=== PATIENT | female | born 1940 | race Caucasian/White ===

== ENCOUNTER 2016-08-15 10:13 | Inpatient (IN) | payer MEDICARE ==
[~2016-08-15] VITALS: Ht 160 cm; Wt 48.2 kg
--- NOTE | 2016-08-15 10:16 | PHYS DOC ---
Adult General Chief Complaint Chief Complaint: WEAKNESS/GENERALIZED HPI HPI Patient is a 76 year old female who presents with syncopal episode. According the she's not been feeling well for the last week and was seen by urgent care and might have a UTI. She got up this morning and was washing her hair in the sink and then yelled for her . He went a kitchen found at the kitchen table and was very slow to respond. EMS stated her sugar was 163 and she was somewhat confused. Upon arrival emergency department she notes she is a [place] she knows her and is able to answer questions appropriately. Review of Systems Review of Systems Constitutional: Denies fever or chills [] Eyes: Denies change in visual acuity, redness, or eye pain [] HENT: Denies nasal congestion or sore throat [] Respiratory: Denies cough or shortness of breath [] Cardiovascular: No additional information not addressed in HPI [] GI: Denies abdominal pain, nausea, vomiting, bloody stools or diarrhea [] : Denies dysuria or hematuria [] Musculoskeletal: Denies back pain or joint pain [] Integument: Denies rash or skin lesions [] Neurologic: Denies headache, focal weakness or sensory changes [] Endocrine: Denies polyuria or polydipsia [] Allergies Allergies Allergies Coded Allergies Type Severity Reaction Last Updated Verified Penicillins Allergy Intermediate 03/28/16 No ciprofloxacin Allergy Intermediate 03/28/16 No Physical Exam Physical Exam Constitutional: Well developed, well nourished, no acute distress, non-toxic appearance. [] HENT: Normocephalic, atraumatic, bilateral external ears normal, oropharynx moist, no oral exudates, nose normal. [] Eyes: PERRLA, EOMI, conjunctiva normal, no discharge. [] Neck: Normal range of motion, no tenderness, supple, no stridor. [] Cardiovascular:Heart rate regular rhythm, no murmur [] Lungs & Thorax: Bilateral breath sounds clear to auscultation [] Abdomen: Bowel sounds normal, soft, no tenderness, no masses, no pulsatile masses. [] Skin: Warm, dry, no erythema, no rash. [] Back: No tenderness, no CVA tenderness. [] Extremities: No tenderness, no cyanosis, no clubbing, ROM intact, no edema. [] Neurologic: Alert and oriented X 3, normal motor function, normal sensory function, no focal deficits noted. [] Psychologic: Affect normal, judgement normal, mood normal. [] Current Patient Data Vital Signs Vital Signs Date Time Temp Pulse Resp B/P Pulse Ox O2 Delivery O2 Flow Rate FiO2 08/15/16 13:22 56 29 136/65 97 Room Air 08/15/16 10:13 97.8 97.8 Lab Values Laboratory Tests Test 08/15/16 11:10 08/15/16 11:35 White Blood Count 8.4x10^3/uL (4.0-11.0) Red Blood Count 5.14x10^6/uL (3.50-5.40) Hemoglobin 15.9g/dL (12.0-15.5) H Hematocrit 48.5% (36.0-47.0) H Mean Corpuscular Volume 94fL (79-100) Mean Corpuscular Hemoglobin 31pg (25-35) Mean Corpuscular Hemoglobin Concent 33g/dL (31-37) Red Cell Distribution Width 12.8% (11.5-14.5) Platelet Count 232x10^3/uL (140-400) Neutrophils (%) (Auto) 73% (31-73) Lymphocytes (%) (Auto) 21% (24-48) L Monocytes (%) (Auto) 5% (0-9) Eosinophils (%) (Auto) 0% (0-3) Basophils (%) (Auto) 1% (0-3) Neutrophils # (Auto) 6.1x10^3uL (1.8-7.7) Lymphocytes # (Auto) 1.8x10^3/uL (1.0-4.8) Monocytes # (Auto) 0.4x10^3/uL (0.0-1.1) Eosinophils # (Auto) 0.0x10^3/uL (0.0-0.7) Basophils # (Auto) 0.1x10^3/uL (0.0-0.2) Prothrombin Time 12.3SEC (11.7-14.0) Prothrombin Time INR 1.0 (0.8-1.1) PTT 21SEC (24-38) L Sodium Level 140mmol/L (136-145) Potassium Level 3.7mmol/L (3.5-5.1) Chloride Level 100mmol/L (98-107) Carbon Dioxide Level 28mmol/L (21-32) Anion Gap 12 (6-14) Blood Urea Nitrogen 14mg/dL (7-20) Creatinine 1.1mg/dL (0.6-1.0) H Estimated GFR (Cockcroft-Gault) 48.0 BUN/Creatinine Ratio 13 (6-20) Glucose Level 123mg/dL (70-99) H Calcium Level 9.4mg/dL (8.5-10.1) Magnesium Level 2.2mg/dL (1.8-2.4) Total Bilirubin 0.7mg/dL (0.2-1.0) Aspartate Amino Transferase (AST) 21U/L (15-37) Alanine Aminotransferase (ALT) 20U/L (14-59) Alkaline Phosphatase 64U/L (46-116) Ammonia < 10mcmol/L (11-34) L Creatine Kinase 30U/L (26-192) Creatine Kinase MB (Mass) < 0.5ng/mL (0.0-3.6) Creatine Kinase MB Relative Index % (0-4) Troponin I Quantitative < 0.017ng/mL (0.000-0.055) SZ-[id number]-Type Natriuretic Peptide 140pg/mL (0-449) Total Protein 7.8g/dL (6.4-8.2) Albumin 3.6g/dL (3.4-5.0) Albumin/Globulin Ratio 0.9 (1.0-1.7) L Urine Color Yellow Urine Clarity Cloudy Urine pH 7.5 Urine Specific [place] 1.010 Urine Protein Negativemg/dL (NEG-TRACE) Urine Glucose (UA) Negativemg/dL (NEG) Urine Ketones (Stick) Negativemg/dL (NEG) Urine Blood Negative (NEG) Urine Nitrite Negative (NEG) Urine Bilirubin Negative (NEG) Urine Urobilinogen Dipstick 0.2mg/dL (0.2 mg/dL) Urine Leukocyte Esterase Negative (NEG) Urine RBC Occ/HPF (0-2) Urine WBC Occ/HPF (0-4) Urine Squamous Epithelial Cells Few/LPF Urine Amorphous Sediment Present/HPF Urine Bacteria 0/HPF (0-FEW) Urine Hyaline Casts Occasional/HPF Urine Mucus Slight/LPF Laboratory Tests 2/2/17 11:10 Laboratory Tests 08/15/16 11:10 EKG EKG EKG shows sinus bradycardia with a rate of 49 bpm, no ST elevations, T-wave inversions in aVL, normal axis, as interpreted by me. Radiology/Procedures Radiology/Procedures [facility] [address] [place] [address] IMAGING REPORT Signed PATIENT: AMANDA HAMILTON ACCOUNT: [id number] : 1940 LOCATION: ER AGE: 76 SEX: F EXAM STATUS: REG ER ORD. PHYSICIAN: LATONIA BUSH MD REASON: AMS PROCEDURE: PORTABLE CHEST 1V Indication: Altered mental status. Technique: Upright portable chest radiograph was obtained. No comparison is available. Findings: The lungs are hyperinflated but clear. Lung apices are clipped. There is no focal airspace disease. The heart is not enlarged and there is no heart failure. There is minimal atheromatous disease in the thoracic aorta. Bony structures are intact. Leads overlie the patient. Impression: Pulmonary hyperinflation, may be related to emphysema. No active pulmonary disease. DICTATED and SIGNED BY: ANDERSON LEAL MD DATE: 08/15/161058 CC: LATONIA BUSH MD; DILEEP MONTELONGO MD ~ Impressions: Bradycardia Syncope Dementia Course & Med Decision Making Course & Med Decision Making Pertinent Labs and Imaging studies reviewed. (See chart for details) EKG shows bradycardia with a rate of 49 bpm, labs show any acute abnormalities. Spoke with Dr. Montelongo, who is agreeable to admitting the patient family is agreeable. Family does agree to admit. We'll place a consult for Dr. Iqbal. Dragon Disclaimer Dragon Disclaimer This electronic medical record was generated, in whole or in part, using a voice recognition dictation system. Departure Departure Impression: Primary Impression: Syncope Disposition: 09 ADMITTED INPATIENT Admitting Physician: Dileep Montelongo Referrals: ERASMO BLACK (PCP) LATONIA BUSH MD Aug 15, 2016 10:16
--- NOTE | 2016-08-15 10:57 | EKG ---
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
--- NOTE | 2016-08-15 11:03 | RAD ---
Indication: Altered mental status. Technique: Upright portable chest radiograph was obtained. No comparison is available. Findings: The lungs are hyperinflated but clear. Lung apices are clipped. There is no focal airspace disease. The heart is not enlarged and there is no heart failure. There is minimal atheromatous disease in the thoracic aorta. Bony structures are intact. Leads overlie the patient. Impression: Pulmonary hyperinflation, may be related to emphysema. No active pulmonary disease.
[2016-08-15 11:23] LABS: BASO # 0.1 x10^3/uL (0.0-0.2); BASO % 1 % (0-3); EOS % 0 % (0-3); HEMATOCRIT 48.5 % (36.0-47.0); HEMOGLOBIN 15.9 g/dL (12.0-15.5); LYMPH # 1.8 x10^3/uL (1.0-4.8); LYMPH % 21 % (24-48); MEAN CORPUSCULAR HEMOGLOBIN 31 pg (25-35); MEAN CORPUSCULAR HGB CONC 33 g/dL (31-37); MEAN CORPUSCULAR VOLUME 94 fL (79-100); MONO % 5 % (0-9); NEUT % 73 % (31-73); PLATELET COUNT 232 x10^3/uL (140-400); RED BLOOD COUNT 5.14 x10^6/uL (3.50-5.40); RED CELL DISTRIBUTION WIDTH 12.8 % (11.5-14.5); WHITE BLOOD COUNT 8.4 x10^3/uL (4.0-11.0)
[2016-08-15 11:34] LABS: CALCIUM 9.4 mg/dL (8.5-10.1); CREATININE 1.1 mg/dL (0.6-1.0); POTASSIUM 3.7 mmol/L (3.5-5.1); PROTHROMBIN TIME PATIENT 12.3 SEC (11.7-14.0)
[2016-08-15 11:40] LABS: ALBUMIN 3.6 g/dL (3.4-5.0); ALBUMIN/GLOBULIN RATIO 0.9 (1.0-1.7); MAGNESIUM 2.2 mg/dL (1.8-2.4); TOTAL BILIRUBIN 0.7 mg/dL (0.2-1.0); TOTAL PROTEIN 7.8 g/dL (6.4-8.2)
[2016-08-15 11:46] LABS: BILIRUBIN,URINE NEGATIVE (NEG); GLUCOSE,URINE NEGATIVE (NEG); NITRITE,URINE NEGATIVE (NEG); PH,URINE 7.5; PROTEIN,URINE NEGATIVE (NEG-TRACE); UROBILINOGEN,URINE 0.2 mg/dL (0.2 mg/dL)
[2016-08-15 11:50] LABS: CKMB MASS < 0.5 ng/mL (0.0-3.6); CREATINE KINASE 30 U/L (26-192)
[2016-08-15 12:11] LABS: RBC,URINE OCC /HPF (0-2)
[2016-08-15 12:12] LABS: BACTERIA,URINE 0 /HPF (0-FEW); SQUAMOUS EPITHELIAL CELL,UR FEW /LPF; WBC,URINE OCC /HPF (0-4)
--- NOTE | 2016-08-15 14:34 | ACF ---
Admission Forms Criteria SYNCOPE Clinical Indications for Admission to Inpatient Care ( Place 'X' for any and all applicable criteria): Admission is indicated for syncope and ANY ONE of the following (1)(2)(3)(4)(5) (6)(7) : [X]I. Inpatient admission required rather than observation care (Also use Syncope: Observation Care Criteria as appropriate) because of ANY ONE of the following: [ ]a) Hemodynamic instability that is severe or persistent [X]b) Cardiac arrhythmias of immediate concern identified or strongly suspected (eg, needs electrophysiologic study) [ ]c) Acute coronary syndrome identified (Also use Myocardial Infarction or Angina Criteria form ) [ ]d) Structural cardiac disorder (eg, aortic stenosis) suspected as cause that requires immediate correction [ ]e) Respiratory symptoms (eg, dyspnea, tachypnea) that are severe or persistent [ ]f) Neurologic signs or symptoms that are severe or persistent ( eg, stroke, seizures, altered mental status) [ ]g) Severe electrolyte abnormalities requiring inpatient care [ ]h) Supplemental oxygen or respiratory treatment for over 24 hrs that are performable only in acute inpatient setting [ ]i) IV fluid to replace significant ongoing (eg, for over 24 hrs ) losses (>3 L/m2 per day) [ ]j) Continuous intravenous infusion of anticoagulation, platelet inhibitor, vasoactive, or antiarrhythmic medication(15)(16) [ ]k) Pulmonary artery catheter monitoring [ ]l) Temporary pacemaker placement(17) [ ]m) Emergent cardioversion(18) [ ]n) Other conditions, treatment or monitoring requiring inpatient admission [ ]II. Suspicion of imminently dangerous cause (eg, rare causes like pericardial tamponade, pulmonary embolism) [ ]III. Syncope causing severe injury requiring hospitalization Extended stay beyond goal length of stay may be needed for(28) [ ]a) Dangerous arrhythmia(15)(23)(27)(29) [ ]b) Myocardial ischemia [ ]c) Seizure disorder [ ]d) Syncope-related injuries The original [employer] content created by [employer] has been revised. The portions of the content which have been revised are identified through the use of italic text or in bold, and [employer] has neither reviewed nor approved the modified material. All other unmodified content is copyright [employer]. Please see references footnoted in the original [facility] edition 2016 Admission Criteria Met?: Yes CORINA GLEASON Aug 15, 2016 14:34
--- NOTE | 2016-08-15 15:01 | PDOC2 ---
CONSULT Date of Consult Date of Consult DATE: 08/15/16 TIME: 14:47 Reason for Consult Reason for Consult: Syncope with bradycardia Referring Physician Referring Physician: Dr Valles Identification/Chief Complaint Chief Complaint Dizziness / Syncope History of Present Illness Reason for Visit: Pt presented to the ER with syncope. Pt got out of the shower and felt dizzy. Pt called out for her and then passed out. Pt does not remember passing out. Pt denies chest pain, shortness of breath, N/V, diaphoresis. Pt did state she felt dizzy and that all she was "being drained". Pt stated this has happened many times before. She has passed out around 4 or 5 times. Pt stated the last time she passed out was around a year ago. In the past her daughter who is a nurse stated she was dehydrated and had orthostatic hypotension. Pt is currently only on osteoporotic medication. Pt is not on any cardiac medication. Pt denies any heart history. Pt stated she had HTN in the past but has been stable for years and has not been on medication recently. Pt has a recent diagnosis of Alzheimer's disease and daughter stated the pt might be depressed because of that. Pt's brother had to have a pacemaker placed years ago but she or the family could not expand on that. Past Medical History Cardiovascular: No pertinent hx, HTN (Hx of but currently denies) Family History Family History Brother - pacemaker Parents both heart healthy Current Problem List Problem List Problems Medical Problems: (1) Syncope Status: Acute Current Medications Current Medications Active Scripts Active Reported No Known Medications Prior To Admisstion (Info) Each 1 Each MC Allergies Allergies: Coded Allergies: Penicillins (Unverified Allergy, Intermediate, 03/28/16) ciprofloxacin (Unverified Allergy, Intermediate, 03/28/16) Physical Exam General: Alert, No acute distress HEENT: Atraumatic, EOMI Heart: Regular rate, Normal S1, Normal S2, No murmurs Extremities: No cyanosis, No edema, Normal pulses Vitals VITALS Vital Signs Date Time Temp Pulse Resp B/P Pulse Ox O2 Delivery O2 Flow Rate FiO2 08/15/16 13:22 56 29 136/65 97 Room Air 08/15/16 10:13 97.8 97.8 Labs Labs Laboratory Tests Test 08/15/16 11:10 08/15/16 11:35 White Blood Count 8.4x10^3/uL (4.0-11.0) Red Blood Count 5.14x10^6/uL (3.50-5.40) Hemoglobin 15.9g/dL (12.0-15.5) Hematocrit 48.5% (36.0-47.0) Mean Corpuscular Volume 94fL (79-100) Mean Corpuscular Hemoglobin 31pg (25-35) Mean Corpuscular Hemoglobin Concent 33g/dL (31-37) Red Cell Distribution Width 12.8% (11.5-14.5) Platelet Count 232x10^3/uL (140-400) Neutrophils (%) (Auto) 73% (31-73) Lymphocytes (%) (Auto) 21% (24-48) Monocytes (%) (Auto) 5% (0-9) Eosinophils (%) (Auto) 0% (0-3) Basophils (%) (Auto) 1% (0-3) Neutrophils # (Auto) 6.1x10^3uL (1.8-7.7) Lymphocytes # (Auto) 1.8x10^3/uL (1.0-4.8) Monocytes # (Auto) 0.4x10^3/uL (0.0-1.1) Eosinophils # (Auto) 0.0x10^3/uL (0.0-0.7) Basophils # (Auto) 0.1x10^3/uL (0.0-0.2) Prothrombin Time 12.3SEC (11.7-14.0) Prothromb Time International Ratio 1.0 (0.8-1.1) Activated Partial Thromboplast Time 21SEC (24-38) Sodium Level 140mmol/L (136-145) Potassium Level 3.7mmol/L (3.5-5.1) Chloride Level 100mmol/L (98-107) Carbon Dioxide Level 28mmol/L (21-32) Anion Gap 12 (6-14) Blood Urea Nitrogen 14mg/dL (7-20) Creatinine 1.1mg/dL (0.6-1.0) Estimated GFR (Cockcroft-Gault) 48.0 BUN/Creatinine Ratio 13 (6-20) Glucose Level 123mg/dL (70-99) Calcium Level 9.4mg/dL (8.5-10.1) Magnesium Level 2.2mg/dL (1.8-2.4) Total Bilirubin 0.7mg/dL (0.2-1.0) Aspartate Amino Transf (AST/SGOT) 21U/L (15-37) Alanine Aminotransferase (ALT/SGPT) 20U/L (14-59) Alkaline Phosphatase 64U/L (46-116) Ammonia < 10mcmol/L (11-34) Creatine Kinase 30U/L (26-192) Creatine Kinase MB (Mass) < 0.5ng/mL (0.0-3.6) Creatine Kinase MB Relative Index % (0-4) Troponin I Quantitative < 0.017ng/mL (0.000-0.055) JD-[id number]-I-Type Natriuretic Peptide 140pg/mL (0-449) Total Protein 7.8g/dL (6.4-8.2) Albumin 3.6g/dL (3.4-5.0) Albumin/Globulin Ratio 0.9 (1.0-1.7) Urine Color Yellow Urine Clarity Cloudy Urine pH 7.5 Urine Specific [place] 1.010 Urine Protein Negativemg/dL (NEG-TRACE) Urine Glucose (UA) Negativemg/dL (NEG) Urine Ketones (Stick) Negativemg/dL (NEG) Urine Blood Negative (NEG) Urine Nitrite Negative (NEG) Urine Bilirubin Negative (NEG) Urine Urobilinogen Dipstick 0.2mg/dL (0.2 mg/dL) Urine Leukocyte Esterase Negative (NEG) Urine RBC Occ/HPF (0-2) Urine WBC Occ/HPF (0-4) Urine Squamous Epithelial Cells Few/LPF Urine Amorphous Sediment Present/HPF Urine Bacteria 0/HPF (0-FEW) Urine Hyaline Casts Occasional/HPF Urine Mucus Slight/LPF Laboratory Tests Test 08/15/16 11:10 08/15/16 11:35 White Blood Count 8.4x10^3/uL (4.0-11.0) Red Blood Count 5.14x10^6/uL (3.50-5.40) Hemoglobin 15.9g/dL (12.0-15.5) Hematocrit 48.5% (36.0-47.0) Mean Corpuscular Volume 94fL (79-100) Mean Corpuscular Hemoglobin 31pg (25-35) Mean Corpuscular Hemoglobin Concent 33g/dL (31-37) Red Cell Distribution Width 12.8% (11.5-14.5) Platelet Count 232x10^3/uL (140-400) Neutrophils (%) (Auto) 73% (31-73) Lymphocytes (%) (Auto) 21% (24-48) Monocytes (%) (Auto) 5% (0-9) Eosinophils (%) (Auto) 0% (0-3) Basophils (%) (Auto) 1% (0-3) Neutrophils # (Auto) 6.1x10^3uL (1.8-7.7) Lymphocytes # (Auto) 1.8x10^3/uL (1.0-4.8) Monocytes # (Auto) 0.4x10^3/uL (0.0-1.1) Eosinophils # (Auto) 0.0x10^3/uL (0.0-0.7) Basophils # (Auto) 0.1x10^3/uL (0.0-0.2) Prothrombin Time 12.3SEC (11.7-14.0) Prothromb Time International Ratio 1.0 (0.8-1.1) Activated Partial Thromboplast Time 21SEC (24-38) Sodium Level 140mmol/L (136-145) Potassium Level 3.7mmol/L (3.5-5.1) Chloride Level 100mmol/L (98-107) Carbon Dioxide Level 28mmol/L (21-32) Anion Gap 12 (6-14) Blood Urea Nitrogen 14mg/dL (7-20) Creatinine 1.1mg/dL (0.6-1.0) Estimated GFR (Cockcroft-Gault) 48.0 BUN/Creatinine Ratio 13 (6-20) Glucose Level 123mg/dL (70-99) Calcium Level 9.4mg/dL (8.5-10.1) Magnesium Level 2.2mg/dL (1.8-2.4) Total Bilirubin 0.7mg/dL (0.2-1.0) Aspartate Amino Transf (AST/SGOT) 21U/L (15-37) Alanine Aminotransferase (ALT/SGPT) 20U/L (14-59) Alkaline Phosphatase 64U/L (46-116) Ammonia < 10mcmol/L (11-34) Creatine Kinase 30U/L (26-192) Creatine Kinase MB (Mass) < 0.5ng/mL (0.0-3.6) Creatine Kinase MB Relative Index % (0-4) Troponin I Quantitative < 0.017ng/mL (0.000-0.055) SI-Dfn-O-Type Natriuretic Peptide 140pg/mL (0-449) Total Protein 7.8g/dL (6.4-8.2) Albumin 3.6g/dL (3.4-5.0) Albumin/Globulin Ratio 0.9 (1.0-1.7) Urine Color Yellow Urine Clarity Cloudy Urine pH 7.5 Urine Specific [place] 1.010 Urine Protein Negativemg/dL (NEG-TRACE) Urine Glucose (UA) Negativemg/dL (NEG) Urine Ketones (Stick) Negativemg/dL (NEG) Urine Blood Negative (NEG) Urine Nitrite Negative (NEG) Urine Bilirubin Negative (NEG) Urine Urobilinogen Dipstick 0.2mg/dL (0.2 mg/dL) Urine Leukocyte Esterase Negative (NEG) Urine RBC Occ/HPF (0-2) Urine WBC Occ/HPF (0-4) Urine Squamous Epithelial Cells Few/LPF Urine Amorphous Sediment Present/HPF Urine Bacteria 0/HPF (0-FEW) Urine Hyaline Casts Occasional/HPF Urine Mucus Slight/LPF Assessment/Plan Assessment/Plan Syncope with bradycardia Admit to tele Echo Heart monitor for significant criteria for pacemaker Thank you for asking me to participate in the care of this pt. SULLY FOWLER MD Aug 15, 2016 15:01
[2016-08-15 16:00] VITALS: BP 143/81
[2016-08-15 17:00] VITALS: BP 143/81
[2016-08-15 17:02] VITALS: BP 140/81
[2016-08-15 17:05] VITALS: BP 133/85
[2016-08-15 19:00] VITALS: BP 126/73
[2016-08-15 23:00] VITALS: BP 136/72
[2016-08-16 03:06] VITALS: BP 129/76
[2016-08-16 06:09] LABS: BASO % 0 % (0-3); EOS % 0 % (0-3); HEMATOCRIT 43.6 % (36.0-47.0); HEMOGLOBIN 14.8 g/dL (12.0-15.5); LYMPH # 2.2 x10^3/uL (1.0-4.8); LYMPH % 34 % (24-48); MEAN CORPUSCULAR HEMOGLOBIN 31 pg (25-35); MEAN CORPUSCULAR HGB CONC 34 g/dL (31-37); MEAN CORPUSCULAR VOLUME 92 fL (79-100); MONO % 10 % (0-9); NEUT % 56 % (31-73); PLATELET COUNT 248 x10^3/uL (140-400); RED BLOOD COUNT 4.75 x10^6/uL (3.50-5.40); RED CELL DISTRIBUTION WIDTH 13.1 % (11.5-14.5); WHITE BLOOD COUNT 6.4 x10^3/uL (4.0-11.0)
[2016-08-16 06:45] LABS: CALCIUM 9.1 mg/dL (8.5-10.1); CREATININE 0.9 mg/dL (0.6-1.0); GFR 60.6; POTASSIUM 4.4 mmol/L (3.5-5.1)
[2016-08-16 07:00] VITALS: BP 123/70
--- NOTE | 2016-08-16 09:09 | PDOC ---
PROGRESS NOTES Subjective Subjective Pt was sitting up in bed this morning. Pt's daughter was in the room and helped answer some questions. Pt stated her night was uneventful. Pt denied dizziness, chest pain, SOB, N/V, diaphoresis. Pt's daughter stated when the pt stands she is weak and shaky. Daughter also stated the pt does not want to eat and only ate 2 bites of chicken yesterday. When asked if the pt had any complaints she responded, "I want to go home." Pt's daughter is concerned that she is depressed. Objective Objective Bradycardia at 48 overnight Vital Signs Date Time Temp Pulse Resp B/P Pulse Ox O2 Delivery O2 Flow Rate FiO2 08/16/16 07:00 98.1 74 16 123/70 96 Room Air 98.1 Intake and Output 08/16/16 07:00 Intake Total 60 ml Balance 60 ml Intake Oral 60 ml # Voids 3 Physical Exam Heart: Regular rate, Normal S1, Normal S2 Extremities: No clubbing, No cyanosis General: Alert HEENT: Atraumatic, EOMI Lungs: Normal air movement Assessment Assessment This pt has recurrent syncope with about 5 episodes in the last 2 years. To be able to determine if she needs a pacer I recommend to insert a Loop Recorder. The pt and the family agree with this. Informed consent was obtained. Will take her to the [facility] and insert the Loop Recorder today. Pt may go home after the procedure. Problems Medical Problems: (1) Syncope Status: Acute Plan Plan of Care Continue monitor and storage bin tender Comment Review of Relevant I have reviewed the following items fidel (where applicable) has been applied. Labs Laboratory Tests Test 08/15/16 11:10 08/15/16 11:35 08/15/16 20:19 08/16/16 05:00 White Blood Count 8.4x10^3/uL (4.0-11.0) 6.4x10^3/uL (4.0-11.0) Red Blood Count 5.14x10^6/uL (3.50-5.40) 4.75x10^6/uL (3.50-5.40) Hemoglobin 15.9g/dL (12.0-15.5) 14.8g/dL (12.0-15.5) Hematocrit 48.5% (36.0-47.0) 43.6% (36.0-47.0) Mean Corpuscular Volume 94fL (79-100) 92fL (79-100) Mean Corpuscular Hemoglobin 31pg (25-35) 31pg (25-35) Mean Corpuscular Hemoglobin Concent 33g/dL (31-37) 34g/dL (31-37) Red Cell Distribution Width 12.8% (11.5-14.5) 13.1% (11.5-14.5) Platelet Count 232x10^3/uL (140-400) 248x10^3/uL (140-400) Neutrophils (%) (Auto) 73% (31-73) 56% (31-73) Lymphocytes (%) (Auto) 21% (24-48) 34% (24-48) Monocytes (%) (Auto) 5% (0-9) 10% (0-9) Eosinophils (%) (Auto) 0% (0-3) 0% (0-3) Basophils (%) (Auto) 1% (0-3) 0% (0-3) Neutrophils # (Auto) 6.1x10^3uL (1.8-7.7) 3.6x10^3uL (1.8-7.7) Lymphocytes # (Auto) 1.8x10^3/uL (1.0-4.8) 2.2x10^3/uL (1.0-4.8) Monocytes # (Auto) 0.4x10^3/uL (0.0-1.1) 0.6x10^3/uL (0.0-1.1) Eosinophils # (Auto) 0.0x10^3/uL (0.0-0.7) 0.0x10^3/uL (0.0-0.7) Basophils # (Auto) 0.1x10^3/uL (0.0-0.2) 0.0x10^3/uL (0.0-0.2) Prothrombin Time 12.3SEC (11.7-14.0) Prothromb Time International Ratio 1.0 (0.8-1.1) Activated Partial Thromboplast Time 21SEC (24-38) Sodium Level 140mmol/L (136-145) 139mmol/L (136-145) Potassium Level 3.7mmol/L (3.5-5.1) 4.4mmol/L (3.5-5.1) Chloride Level 100mmol/L (98-107) 100mmol/L (98-107) Carbon Dioxide Level 28mmol/L (21-32) 27mmol/L (21-32) Anion Gap 12 (6-14) 12 (6-14) Blood Urea Nitrogen 14mg/dL (7-20) 18mg/dL (7-20) Creatinine 1.1mg/dL (0.6-1.0) 0.9mg/dL (0.6-1.0) Estimated GFR (Cockcroft-Gault) 48.0 60.6 BUN/Creatinine Ratio 13 (6-20) Glucose Level 123mg/dL (70-99) 58mg/dL (70-99) Calcium Level 9.4mg/dL (8.5-10.1) 9.1mg/dL (8.5-10.1) Magnesium Level 2.2mg/dL (1.8-2.4) Total Bilirubin 0.7mg/dL (0.2-1.0) Aspartate Amino Transf (AST/SGOT) 21U/L (15-37) Alanine Aminotransferase (ALT/SGPT) 20U/L (14-59) Alkaline Phosphatase 64U/L (46-116) Ammonia < 10mcmol/L (11-34) Creatine Kinase 30U/L (26-192) Creatine Kinase MB (Mass) < 0.5ng/mL (0.0-3.6) Creatine Kinase MB Relative Index % (0-4) Troponin I Quantitative < 0.017ng/mL (0.000-0.055) < 0.017ng/mL (0.000-0.055) < 0.017ng/mL (0.000-0.055) XJ-Xek-O-Type Natriuretic Peptide 140pg/mL (0-449) Total Protein 7.8g/dL (6.4-8.2) Albumin 3.6g/dL (3.4-5.0) Albumin/Globulin Ratio 0.9 (1.0-1.7) Urine Color Yellow Urine Clarity Cloudy Urine pH 7.5 Urine Specific [place] 1.010 Urine Protein Negativemg/dL (NEG-TRACE) Urine Glucose (UA) Negativemg/dL (NEG) Urine Ketones (Stick) Negativemg/dL (NEG) Urine Blood Negative (NEG) Urine Nitrite Negative (NEG) Urine Bilirubin Negative (NEG) Urine Urobilinogen Dipstick 0.2mg/dL (0.2 mg/dL) Urine Leukocyte Esterase Negative (NEG) Urine RBC Occ/HPF (0-2) Urine WBC Occ/HPF (0-4) Urine Squamous Epithelial Cells Few/LPF Urine Amorphous Sediment Present/HPF Urine Bacteria 0/HPF (0-FEW) Urine Hyaline Casts Occasional/HPF Urine Mucus Slight/LPF Laboratory Tests Test 08/15/16 11:10 08/15/16 11:35 08/15/16 20:19 08/16/16 05:00 White Blood Count 8.4x10^3/uL (4.0-11.0) 6.4x10^3/uL (4.0-11.0) Red Blood Count 5.14x10^6/uL (3.50-5.40) 4.75x10^6/uL (3.50-5.40) Hemoglobin 15.9g/dL (12.0-15.5) 14.8g/dL (12.0-15.5) Hematocrit 48.5% (36.0-47.0) 43.6% (36.0-47.0) Mean Corpuscular Volume 94fL (79-100) 92fL (79-100) Mean Corpuscular Hemoglobin 31pg (25-35) 31pg (25-35) Mean Corpuscular Hemoglobin Concent 33g/dL (31-37) 34g/dL (31-37) Red Cell Distribution Width 12.8% (11.5-14.5) 13.1% (11.5-14.5) Platelet Count 232x10^3/uL (140-400) 248x10^3/uL (140-400) Neutrophils (%) (Auto) 73% (31-73) 56% (31-73) Lymphocytes (%) (Auto) 21% (24-48) 34% (24-48) Monocytes (%) (Auto) 5% (0-9) 10% (0-9) Eosinophils (%) (Auto) 0% (0-3) 0% (0-3) Basophils (%) (Auto) 1% (0-3) 0% (0-3) Neutrophils # (Auto) 6.1x10^3uL (1.8-7.7) 3.6x10^3uL (1.8-7.7) Lymphocytes # (Auto) 1.8x10^3/uL (1.0-4.8) 2.2x10^3/uL (1.0-4.8) Monocytes # (Auto) 0.4x10^3/uL (0.0-1.1) 0.6x10^3/uL (0.0-1.1) Eosinophils # (Auto) 0.0x10^3/uL (0.0-0.7) 0.0x10^3/uL (0.0-0.7) Basophils # (Auto) 0.1x10^3/uL (0.0-0.2) 0.0x10^3/uL (0.0-0.2) Prothrombin Time 12.3SEC (11.7-14.0) Prothromb Time International Ratio 1.0 (0.8-1.1) Activated Partial Thromboplast Time 21SEC (24-38) Sodium Level 140mmol/L (136-145) 139mmol/L (136-145) Potassium Level 3.7mmol/L (3.5-5.1) 4.4mmol/L (3.5-5.1) Chloride Level 100mmol/L (98-107) 100mmol/L (98-107) Carbon Dioxide Level 28mmol/L (21-32) 27mmol/L (21-32) Anion Gap 12 (6-14) 12 (6-14) Blood Urea Nitrogen 14mg/dL (7-20) 18mg/dL (7-20) Creatinine 1.1mg/dL (0.6-1.0) 0.9mg/dL (0.6-1.0) Estimated GFR (Cockcroft-Gault) 48.0 60.6 BUN/Creatinine Ratio 13 (6-20) Glucose Level 123mg/dL (70-99) 58mg/dL (70-99) Calcium Level 9.4mg/dL (8.5-10.1) 9.1mg/dL (8.5-10.1) Magnesium Level 2.2mg/dL (1.8-2.4) Total Bilirubin 0.7mg/dL (0.2-1.0) Aspartate Amino Transf (AST/SGOT) 21U/L (15-37) Alanine Aminotransferase (ALT/SGPT) 20U/L (14-59) Alkaline Phosphatase 64U/L (46-116) Ammonia < 10mcmol/L (11-34) Creatine Kinase 30U/L (26-192) Creatine Kinase MB (Mass) < 0.5ng/mL (0.0-3.6) Creatine Kinase MB Relative Index % (0-4) Troponin I Quantitative < 0.017ng/mL (0.000-0.055) < 0.017ng/mL (0.000-0.055) < 0.017ng/mL (0.000-0.055) QH-Ktk-Y-Type Natriuretic Peptide 140pg/mL (0-449) Total Protein 7.8g/dL (6.4-8.2) Albumin 3.6g/dL (3.4-5.0) Albumin/Globulin Ratio 0.9 (1.0-1.7) Urine Color Yellow Urine Clarity Cloudy Urine pH 7.5 Urine Specific [place] 1.010 Urine Protein Negativemg/dL (NEG-TRACE) Urine Glucose (UA) Negativemg/dL (NEG) Urine Ketones (Stick) Negativemg/dL (NEG) Urine Blood Negative (NEG) Urine Nitrite Negative (NEG) Urine Bilirubin Negative (NEG) Urine Urobilinogen Dipstick 0.2mg/dL (0.2 mg/dL) Urine Leukocyte Esterase Negative (NEG) Urine RBC Occ/HPF (0-2) Urine WBC Occ/HPF (0-4) Urine Squamous Epithelial Cells Few/LPF Urine Amorphous Sediment Present/HPF Urine Bacteria 0/HPF (0-FEW) Urine Hyaline Casts Occasional/HPF Urine Mucus Slight/LPF Medications Active Scripts Active Reported No Known Medications Prior To Admisstion (Info) Each 1 Each Vitals/I & O Vital Sign - Last 24 Hours 08/15/16 08/15/16 08/15/16 08/15/16 10:13 11:30 12:00 12:30 Temp 97.8 97.8 Pulse 48 52 64 52 Resp 23 26 B/P 137/60 137/60 153/65 132/58 Pulse Ox 97 98 99 97 O2 Delivery Room Air Room Air Room Air Room Air 08/15/16 08/15/16 08/15/16 08/15/16 13:00 13:22 13:52 14:22 Pulse 56 56 58 64 Resp 26 29 27 25 B/P 139/62 136/65 136/62 164/72 Pulse Ox 96 97 96 99 O2 Delivery Room Air Room Air Room Air Room Air 08/15/16 08/15/16 08/15/16 08/15/16 15:22 16:00 16:50 17:00 Temp 97.3 97.3 Pulse 56 66 65 B/P 123/61 143/81 143/81 Pulse Ox 95 97 O2 Delivery Room Air Room Air Room Air 08/15/16 08/15/16 08/15/16 08/15/16 17:02 17:05 19:00 20:00 Temp 97.5 97.5 Pulse 64 78 70 Resp 20 B/P 140/81 133/85 126/73 Pulse Ox 97 O2 Delivery Room Air Room Air 08/15/16 08/16/16 08/16/16 23:00 03:06 07:00 Temp 97.4 98.0 98.1 97.4 98.0 98.1 Pulse 64 65 74 Resp 20 20 16 B/P 136/72 129/76 123/70 Pulse Ox 98 96 96 O2 Delivery Room Air Room Air Room Air Intake and Output 08/15/16 08/15/16 08/16/16 15:00 23:00 07:00 Intake Total 60 ml Balance 60 ml SULLY FOWLER MD Aug 16, 2016 09:09
[2016-08-16 10:49] VITALS: BP 125/68
[2016-08-16 15:18] VITALS: BP 130/80
[2016-08-16] MEDS ORDERED: LIDOCAINE 2%/EPI 1:100,000 20 ML VIAL. ONE (15:21)
[2016-08-16] MEDS ORDERED: FENTANYL PF 100 MCG/2 ML VIAL. ONE (15:56)
[2016-08-16] MEDS ORDERED: LIDOCAINE 2%/EPI 1:100,000 20 ML VIAL. IJ ONE (16:30)
[2016-08-16] MEDS ORDERED: FENTANYL PF 100 MCG/2 ML VIAL. IV ONE (16:30)
[2016-08-16 16:31] VITALS: BP 134/62
--- NOTE | 2016-08-16 17:11 | CARD ---
APPROVED REPORT EXAM Loop Recorder HISTORY The Patient is a 76 year-old female with a history of syncope INDICATIONS This patient has been having repeated episodes of syncope about 5 times in the last 2 years because t his syncope is happening every few months we have not been able to catch if they were due to a dysrhy thmia. The patient has had previous workups done and no apparent reason was found for the syncope is from a noncardiac standpoint therefore at this time we are trying to be able to find out what happens during this episodes and for this purpose a loop recorded was recommended. The patient has signed an informed consent. IMPLANTED DEVICES [facility] [facility] loop recorder PROCEDURE After explaining the risks, benefits, and alternative options, informed consent was obtained from the patient. The patient was brought to the cardiac catheterization lab and the left chest and shoulder were prepp ed and draped in the usual fashion. During this case, Fluoroscopy was not used. The left parasternal area was infiltrated with Xylocaine at the level of the fourth intercostal space . The skin was incised and then with blunt dissection I created a pocket for the loop recorder. The l oop recorder was then inserted into the area and the sensing was checked and found to be acceptable. The pocket was then closed with 2 layers of running suture and the skin edges were approximated with Dermabond. A dressing was applied to the area and the patient was returned to her room in satisfactor y condition after tolerating the procedure rather well. were used for imaging. CONCLUSION The loop recorder was inserted and we will be following the recordings as an outpatient. If the patie nt has an episode of syncope and it proves to be due to bradycardia she will then need to have insert ion of a permanent pacemaker and at that time we can explant the loop recorder.
--- NOTE | 2016-08-16 17:30 | CARD ---
APPROVED REPORT EXAM: Two-dimensional and M-mode echocardiogram with Doppler and color Doppler. Other Information Quality : Average Rhythm : NSR INDICATION Syncope 2D DIMENSIONS RVDd2.1 (2.9-3.5cm)Left Atrium(2D)2.1 (1.6-4.0cm) IVSd0.8 (0.7-1.1cm)Aortic Root(2D)2.5 (2.0-3.7cm) LVDd3.4 (3.9-5.9cm)LVOT Diameter2.0 (1.8-2.4cm) PWd0.7 (0.7-1.1cm)LVDs2.3 (2.5-4.0cm) FS (%) 22.9 %SV30.3 ml LVEF(%)55.0 (>50%) Aortic Valve AoV Peak Krunal.78.7cm/sAoV VTI15.5cm AO Peak GR.2.5mmHgLVOT VTI 14.96cm AO Mean GR.1mmHgAVA (VTI)2.98cm2 Mitral Valve MV E Iluhqryy41.6cm/sMV E Peak Gr.3mmHg MV DECEL QUDI019lbGN A Fbognoyx33.6cm/s MV E Mean Gr.1mmHgMV BHE41ft E/A Ratio0.9MV A Iuuatcwg138to MVA (PHT)2.82cm2 TDI Lateral E' P. V7.20cm/sMedial E' P. V6.41cm/s E/Lateral E'7.7E/Medial E'8.7 Tricuspid Valve TR P. Hnnmcjuq218ct/sRAP CDMULNNN0iuHa TR Peak Gr.03itBeGDQV95utMh Pulmonary Vein S1 Tkgfngpk81.6cm/sS2 Zniuqika89.14cm/s D2 Tfnwvsxm22.1cm/sPVa [id number] LEFT VENTRICLE The left ventricle is normal size. There is normal left ventricular wall thickness. Left ventricle sy stolic function is normal. The Ejection Fraction is 55%. There is normal LV segmental wall motion. Th e left ventricular diastolic function and filling is normal for age. RIGHT VENTRICLE The right ventricle is normal size. The right ventricular systolic function is normal. ATRIA The left atrium size is normal. The right atrium size is normal. The interatrial septum is intact wit h no evidence for an atrial septal defect or patent foramen ovale as noted on 2-D or Doppler imaging. AORTIC VALVE The aortic valve is calcified but opens well. The aortic valve is trileaflet. Doppler and Color Flow revealed no significant aortic regurgitation. There is no significant aortic valvular stenosis. MITRAL VALVE The mitral valve is normal in structure. There is no mitral valve stenosis. Doppler and Color Flow re vealed mild mitral regurgitation. TRICUSPID VALVE The tricuspid valve is normal in structure. Doppler and Color Flow revealed trace to mild tricuspid r egurgitation. The PA pressure was estimated at 23 mmHg. There is no tricuspid valve stenosis. PULMONIC VALVE The pulmonic valve is not well visualized. Doppler and Color Flow revealed no pulmonic valvular regur gitation. There is no pulmonic valvular stenosis. GREAT VESSELS The aortic root is normal in size. Normal pulmonary venous flow (Doppler). The IVC is normal in size and collapses >50% with inspiration. PERICARDIAL EFFUSION There is no evidence of significant pericardial effusion. Critical Notification Critical Value: No <Conclusion> Left ventricle systolic function is normal. The Ejection Fraction is 55%. The left atrium size is normal. The right atrium size is normal. The aortic valve is calcified but opens well. The aortic valve is trileaflet. Doppler and Color Flow revealed mild mitral regurgitation. Doppler and Color Flow revealed trace to mild tricuspid regurgitation. The PA pressure was estimated at 23 mmHg. The pulmonic valve is not well visualized. There is no evidence of significant pericardial effusion.
--- NOTE | 2016-08-16 20:36 | HP ---
ADMIT DATE: 08/15/2016 CHIEF COMPLAINT: Syncope. HISTORY OF PRESENT ILLNESS AND HOSPITAL COURSE: This patient is a 76-year-old male who lives at home with her . She yelled out and was found minimally responsive siting in a chair by her . She exhibited no evidence of seizures and was immediately coherent, but felt extremely fatigued and unable to care for herself. She apparently has had several episodes of syncope and "passing out" 4-5 times and feeling drained in the recent past as well as one episode a year ago. During Emergency Room evaluation, she was found to be bradycardic into the 40s. Patient currently is taking no medicines except for Fosamax. PAST MEDICAL HISTORY: Significant for: 1. Alzheimer type dementia. 2. Hypertension. 3. Suspected depression. The patient has been on medications for dementia, but has failed these due to nausea. The patient has been on medication for depression, but has been taken off of this by family. The patient has been on blood pressure medicine, but has again been taken off of this by family. Patient has no longstanding ____ at present. She is stable off medications except for current syncope issues. FAMILY HISTORY: Significant for father who of a stomach cancer, a brother who with cancer, but also had a pacemaker. Mother who had multiple syncopal spells, but unknown diagnoses. SOCIAL HISTORY: The patient has never smoked. She does not use alcohol. She lives with her . She has excellent family support from 3 daughters. ALLERGIES: THE PATIENT EXHIBITS ALLERGIES TO PENICILLIN CAUSING A RASH, CIPRO CAUSING STOMACH ONSET AND LIPITOR CAUSING MYALGIAS. REVIEW OF SYSTEMS: The patient continued to have poor appetite, but is eating. Denies any nausea, vomiting or diarrhea. The patient denies chest pain, shortness of breath. The patient does complain of fatigue. PHYSICAL EXAMINATION: GENERAL: This is a thin female in no apparent distress on my exam. She is asking to go home. HEENT: Benign. NECK: Supple, without JVD or bruit. CARDIAC: Regular rate and rhythm. LUNGS: Clear. ABDOMEN: Soft, nontender. EXTREMITIES: There are 2+ pulses without significant edema. NEUROLOGIC: Showed no unilateral findings, but obvious signs of dementia and poor short term memory are noted. ASSESSMENT: 1. Syncope. 2. Bradyarrhythmia. 3. Alzheimer type dementia. PLAN: To proceed with cardiology evaluation and telemetry monitoring and consider pacemaker placement if warranted. GLO LAI MD DR: SINDY/salvador JOB#: [id number] / [id number]
== END 2016-08-16 18:01 | disposition home or self-care (01) | DRG 261 ==
LOC: ER 10:13 → 5 NORTH 14:00 → OBSVTOIN 17:53
PROVIDERS: ADMIT Family Medicine; ATTEND Family Medicine
PROC: 0JH602Z Insertion of Monitoring Device into Chest Subcutaneous Tissue and Fascia, Open Approach (ICD-10-PCS; principal; 2016-08-16)
DX: R00.1 Bradycardia, unspecified (principal); Z68.1 Body mass index [BMI] 19.9 or less, adult; F32.9 Major depressive disorder, single episode, unspecified; F02.80 Dementia in other diseases classified elsewhere, unspecified severity, without behavioral disturbance, psychotic disturbance, mood disturbance, and anxiety; G30.9 Alzheimer's disease, unspecified; I10 Essential (primary) hypertension; M81.0 Age-related osteoporosis without current pathological fracture; Z80.0 Family history of malignant neoplasm of digestive organs; Z88.0 Allergy status to penicillin; Z88.1 Allergy status to other antibiotic agents; R63.6 Underweight
CPT/HCPCS: 33282; 36415; 71010; 80048; 80053; 81001; 82140; 82553; 83735; 83880; 84484; 85027; 85610; 85730; 93005; 93306; C1764; G0378; G0379; J3010; J3490; 99285-25

== ENCOUNTER 2016-12-21 19:20 | Emergency (ER) | payer MEDICARE ==
[~2016-12-21] VITALS: Ht 152.4 cm; Wt 45.4 kg
--- NOTE | 2016-12-21 20:21 | PHYS DOC ---
Past Medical History Past Medical History: Dementia, Unknown, Other Additional Past Medical Histor: Alzbibiana's Past Surgical History: Pacemaker Alcohol Use: None Drug Use: None Adult General Chief Complaint Chief Complaint: NAUSEA/VOMITING/DIARRHA HPI HPI Patient is a 76 year old female who presents with and daughter for evaluation of nausea and vomiting over the past 3 days and general weakness and shakiness today. She has mostly dry heaving today. Symptoms are usually worse in the afternoon and evening than the morning. She denies focal weakness, numbness, tingling, headache, vision changes, sore throat, rhinorrhea, nasal congestion, cough, dyspnea, chest pain, fever or chills, diarrhea, constipation. No falls or injury. Denies dysuria. States she was recently seen by her primary care doctor and restarted on some medications that she prior did not tolerate due to nausea and vomiting. She has been taking these intermittently. She has also been taking Keflex recently for a suspected urinary tract infection; however she was called by her primary care doctor and noted to have a negative urine culture. Review of Systems Review of Systems Constitutional: Denies fever or chills [] Eyes: Denies change in visual acuity, redness, or eye pain [] HENT: Denies nasal congestion or sore throat [] Respiratory: Denies cough or shortness of breath [] Cardiovascular: No additional information not addressed in HPI [] GI: Denies abdominal pain, bloody stools or diarrhea [] : Denies dysuria or hematuria [] Musculoskeletal: Denies back pain or joint pain [] Integument: Denies rash or skin lesions [] Neurologic: Denies headache, focal weakness or sensory changes [] Endocrine: Denies polyuria or polydipsia [] Current Medications Current Medications Current Medications Medications (Trade) Dose Ordered Sig/Sherrie Start Time Stop Time Status Last Admin Dose Admin Ondansetron HCl (Zofran) 4 mg 1X ONCE 12/21/16 20:30 12/21/16 20:31 DC 12/21/16 20:34 4 MG Potassium Chloride (Klor-Con) 40 meq 1X ONCE 12/21/16 21:00 12/21/16 21:01 DC 12/21/16 20:58 40 MEQ Sodium Chloride 500 ml @ 500 mls/hr 1X ONCE 12/21/16 20:30 12/21/16 21:29 DC 12/21/16 20:33 500 MLS/HR Allergies Allergies Allergies Coded Allergies Type Severity Reaction Last Updated Verified Penicillins Allergy Intermediate 03/28/16 No ciprofloxacin Allergy Intermediate 03/28/16 No Physical Exam Physical Exam Constitutional: Well developed, well nourished, no acute distress, non-toxic appearance. [] HENT: Normocephalic, atraumatic, bilateral external ears normal, oropharynx moist, nose normal. [] Eyes: PERRLA, EOMI. [] Neck: Normal range of motion, supple. [] Cardiovascular:Heart rate regular rhythm [] Lungs & Thorax: Bilateral breath sounds clear to auscultation [] Abdomen: Bowel sounds normal, soft, no tenderness. [] Skin: Warm, dry, no erythema, no rash. [] Back: No tenderness, no CVA tenderness. [] Extremities: No tenderness, ROM intact, no edema. [] Neurologic: Alert and oriented X 3, normal motor function, normal sensory function, no focal deficits noted. [] Psychologic: Affect normal, judgement normal, mood normal. [] Current Patient Data Vital Signs Vital Signs Date Time Temp Pulse Resp B/P (MAP) Pulse Ox O2 Delivery O2 Flow Rate FiO2 12/21/16 20:39 58 20 158/95 (116) 99 Room Air 12/21/16 19:25 97.6 97.6 Lab Values Laboratory Tests Test 12/21/16 19:40 12/21/16 21:05 White Blood Count 10.5 x10^3/uL (4.0-11.0) Red Blood Count 4.86 x10^6/uL (3.50-5.40) Hemoglobin 15.8 g/dL (12.0-15.5) H Hematocrit 45.1 % (36.0-47.0) Mean Corpuscular Volume 93 fL (79-100) Mean Corpuscular Hemoglobin 33 pg (25-35) Mean Corpuscular Hemoglobin Concent 35 g/dL (31-37) Red Cell Distribution Width 12.9 % (11.5-14.5) Platelet Count 287 x10^3/uL (140-400) Neutrophils (%) (Auto) 57 % (31-73) Lymphocytes (%) (Auto) 37 % (24-48) Monocytes (%) (Auto) 5 % (0-9) Eosinophils (%) (Auto) 0 % (0-3) Basophils (%) (Auto) 1 % (0-3) Neutrophils # (Auto) 6.0 x10^3uL (1.8-7.7) Lymphocytes # (Auto) 3.9 x10^3/uL (1.0-4.8) Monocytes # (Auto) 0.5 x10^3/uL (0.0-1.1) Eosinophils # (Auto) 0.0 x10^3/uL (0.0-0.7) Basophils # (Auto) 0.1 x10^3/uL (0.0-0.2) Sodium Level 141 mmol/L (136-145) Potassium Level 2.9 mmol/L (3.5-5.1) *L Chloride Level 101 mmol/L (98-107) Carbon Dioxide Level 25 mmol/L (21-32) Anion Gap 15 (6-14) H Blood Urea Nitrogen 22 mg/dL (7-20) H Creatinine 1.2 mg/dL (0.6-1.0) H Estimated GFR (Cockcroft-Gault) 43.4 Glucose Level 149 mg/dL (70-99) H Calcium Level 9.6 mg/dL (8.5-10.1) Total Bilirubin 1.0 mg/dL (0.2-1.0) Direct Bilirubin 0.1 mg/dL (0.0-0.2) Aspartate Amino Transferase (AST) 17 U/L (15-37) Alanine Aminotransferase (ALT) 16 U/L (14-59) Alkaline Phosphatase 73 U/L (46-116) Total Protein 8.3 g/dL (6.4-8.2) H Albumin 4.3 g/dL (3.4-5.0) Lipase 295 U/L (73-393) Urine Collection Type Unknown Urine Color Yellow Urine Clarity Cloudy Urine pH 7.5 Urine Specific [place] 1.015 Urine Protein Negative mg/dL (NEG-TRACE) Urine Glucose (UA) Negative mg/dL (NEG) Urine Ketones (Stick) 15 mg/dL (NEG) Urine Blood Negative (NEG) Urine Nitrite Negative (NEG) Urine Bilirubin Negative (NEG) Urine Urobilinogen Dipstick 0.2 mg/dL (0.2 mg/dL) Urine Leukocyte Esterase Negative (NEG) Urine RBC 1-2 /HPF (0-2) Urine WBC 1-4 /HPF (0-4) Urine Squamous Epithelial Cells Few /LPF Urine Transitional Epithelial Cells Few /LPF Urine Amorphous Sediment Present /HPF Urine Bacteria 0 /HPF (0-FEW) Urine Mucus Slight /LPF Laboratory Tests 12/21/16 19:40 Laboratory Tests 12/21/16 19:40 EKG EKG EKG as interpreted by me as normal sinus rhythm, rate 88, no ST-T changes, normal intervals, no ectopy Course & Med Decision Making Course & Med Decision Making Pertinent Labs and Imaging studies reviewed. (See chart for details) She is hypokalemia, but otherwise largely unremarkable laboratory evaluation. She is able to tolerate oral intake. Potassium was replaced by mouth. She is feeling much better after medications here. Offered admission for weakness associated with hypokalemia, but she prefers to go home. Discussed to stop medications that they feel are causing side effects (she will continue citalopram). Encouraged them to take medications back to the pharmacy that she will stop taking. Encouraged to follow-up with primary care and neurology to discuss other medication options. Return precautions given. She and family understand and agree with plan. Dragon Disclaimer Dragon Disclaimer This electronic medical record was generated, in whole or in part, using a voice recognition dictation system. Departure Departure Impression: Primary Impression: Nausea and vomiting Additional Impressions: Generalized weakness Hypokalemia Disposition: 01 HOME, SELF-CARE Condition: STABLE Referrals: GLO LAI MD (PCP) Patient Instructions: Nausea and Vomiting, [id number] Additional Instructions: Take Zofran as needed for nausea. Follow-up with your primary care doctor within one week. Please call for appointment. Return for any concerns. Scripts Ondansetron (ZOFRAN ODT) 4 Mg Tab.rapdis 1 TAB SL Q8HRS Y for NAUSEA, #10 TAB Prov: Alia LOMAX MD 12/21/16 Problem Qualifiers Primary Impression: Nausea and vomiting Vomiting type: unspecified Vomiting Intractability: non-intractable Qualified Codes: R11.2 - Nausea with vomiting, unspecified Alia LOMAX MD Dec 21, 2016 20:21
[2016-12-21 20:29] LABS: BASO # 0.1 x10^3/uL (0.0-0.2); BASO % 1 % (0-3); EOS % 0 % (0-3); HEMATOCRIT 45.1 % (36.0-47.0); HEMOGLOBIN 15.8 g/dL (12.0-15.5); LYMPH # 3.9 x10^3/uL (1.0-4.8); LYMPH % 37 % (24-48); MEAN CORPUSCULAR HEMOGLOBIN 33 pg (25-35); MEAN CORPUSCULAR HGB CONC 35 g/dL (31-37); MEAN CORPUSCULAR VOLUME 93 fL (79-100); MONO % 5 % (0-9); NEUT % 57 % (31-73); PLATELET COUNT 287 x10^3/uL (140-400); RED BLOOD COUNT 4.86 x10^6/uL (3.50-5.40); RED CELL DISTRIBUTION WIDTH 12.9 % (11.5-14.5); WHITE BLOOD COUNT 10.5 x10^3/uL (4.0-11.0)
[2016-12-21] MEDS ORDERED: ONDANSETRON PF 4 MG/2 ML VIAL. IV ONE (20:30)
[2016-12-21] MEDS ORDERED: IV NORMAL SALINE 500ML BAG 500 ML IV ONE (20:30)
[2016-12-21 20:36] LABS: ALBUMIN 4.3 g/dL (3.4-5.0); CALCIUM 9.6 mg/dL (8.5-10.1); CREATININE 1.2 mg/dL (0.6-1.0); DIRECT BILIRUBIN 0.1 mg/dL (0.0-0.2); GFR 43.4; TOTAL PROTEIN 8.3 g/dL (6.4-8.2)
[2016-12-21 20:40] LABS: POTASSIUM 2.9 mmol/L (3.5-5.1)
[2016-12-21] MEDS ORDERED: POTASSIUM CHLORIDE 20 MEQ TABLET.ER. PO ONE (21:00)
[2016-12-21 21:14] LABS: BILIRUBIN,URINE NEGATIVE (NEG); GLUCOSE,URINE NEGATIVE (NEG); NITRITE,URINE NEGATIVE (NEG); PH,URINE 7.5; PROTEIN,URINE NEGATIVE (NEG-TRACE); UROBILINOGEN,URINE 0.2 mg/dL (0.2 mg/dL)
[2016-12-21 21:22] LABS: BACTERIA,URINE 0 /HPF (0-FEW); SQUAMOUS EPITHELIAL CELL,UR FEW /LPF
[2016-12-21] MEDS ORDERED: ONDA4TAB10 SL (21:51)
[2016-12-21 22:17] VITALS: BP 140/87
--- NOTE | 2016-12-22 12:49 | EKG ---
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
== END 2016-12-21 22:15 | disposition home or self-care (01) ==
LOC: ER 19:20
DX: R11.2 Nausea with vomiting, unspecified (principal); R53.1 Weakness; E87.6 Hypokalemia; G30.9 Alzheimer's disease, unspecified; F02.80 Dementia in other diseases classified elsewhere, unspecified severity, without behavioral disturbance, psychotic disturbance, mood disturbance, and anxiety; Z95.0 Presence of cardiac pacemaker; Z88.0 Allergy status to penicillin; Z88.1 Allergy status to other antibiotic agents
CPT/HCPCS: 36415; 80048; 80076; 81001; 83690; 85027; 93005; 96374; 99285; J2405; J7040

== ENCOUNTER 2017-04-14 00:13 | Inpatient (IN) | payer MEDICARE ==
[~2017-04-14] VITALS: Ht 160 cm; Wt 49.9 kg
[~2017-04-14 00:13] MED LIST: ONDA4TAB10 SL
--- NOTE | 2017-04-14 00:28 | PHYS DOC ---
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 Patient didn't experience any any pain prior to the fall. She states she felt a little bit dizzy, this was similar to previous episodes of dizziness was brief. There was no focal weakness or numbness. Patient did not lose consciousness, did not hit her head or neck. Patient denies any head pain, neck pain, chest pain, abdominal pain or hip pain. Her chief complaint is pain in the lower back. She is able to move all her extremities. Review of Systems Review of Systems Constitutional: Denies fever or chills [] Eyes: Denies change in visual acuity, redness, or eye pain [] HENT: Denies injury Respiratory: Denies cough or shortness of breath [] Cardiovascular: No injury GI: Denies abdominal pain, : Denies dysuria or hematuria [] Musculoskeletal: Low back pain Integument: Denies rash or skin lesions [] Neurologic: Denies headache, focal weakness or sensory changes [] Current Medications Current Medications Current Medications Medications (Trade) Dose Ordered Sig/Sherrie Start Time Stop Time Status Last Admin Dose Admin Fentanyl Citrate (Fentanyl 2ml Vial) 75 mcg 1X ONCE 04/14/17 01:00 04/14/17 01:01 Sodium Chloride 500 ml @ 500 mls/hr 1X ONCE 04/14/17 01:00 04/14/17 01:59 Allergies Allergies Allergies Coded Allergies Type Severity Reaction Last Updated Verified Penicillins Allergy Intermediate 03/28/16 No ciprofloxacin Allergy Intermediate 03/28/16 No Physical Exam Physical Exam Constitutional: Well developed, well nourished, no acute distress, non-toxic appearance. [] HENT: Normocephalic, atraumatic, no signs of basilar skull fracture bilateral external ears normal, oropharynx dry no oral exudates, nose normal. [] Eyes:EOMI, conjunctiva normal, no discharge. [] Neck: Normal range of motion, no tenderness, supple, no stridor. No midline tenderness, no step-offs Cardiovascular:Heart rate regular rhythm, no murmur, equal pulses, normal perfusion. No chest wall deformity or tenderness Lungs & Thorax: Bilateral breath sounds clear to auscultation, no tachypnea Abdomen: Bowel sounds normal, soft, no tenderness, no masses, no pulsatile masses. [] Skin: Warm, dry, no erythema, no rash. [] Back: Tenderness to palpation in the midthoracic spine and the lumbar area, no step-offs Extremities: No tenderness, no cyanosis, no DVT, ROM intact, no edema. [] Neurologic: Alert and oriented X 3, normal motor function, no focal deficits noted. [] Psychologic: Affect normal, judgement normal, mood normal. [] EKG EKG 0024 sr, 65, no stemi[] Radiology/Procedures Radiology/Procedures [] Course & Med Decision Making Course & Med Decision Making Pertinent Labs and Imaging studies reviewed. (See chart for details) [] Dragon Disclaimer Dragon Disclaimer This electronic medical record was generated, in whole or in part, using a voice recognition dictation system. Departure Departure Referrals: GLO LAI MD (PCP) Catina PIEDRA MD Apr 14, 2017 00:27
[2017-04-14 00:36] LABS: BASO % 1 % (0-3); EOS % 1 % (0-3); HEMATOCRIT 41.3 % (36.0-47.0); HEMOGLOBIN 13.8 g/dL (12.0-15.5); LYMPH # 2.4 x10^3/uL (1.0-4.8); LYMPH % 34 % (24-48); MEAN CORPUSCULAR HEMOGLOBIN 32 pg (25-35); MEAN CORPUSCULAR HGB CONC 33 g/dL (31-37); MEAN CORPUSCULAR VOLUME 95 fL (79-100); MONO % 7 % (0-9); NEUT % 58 % (31-73); PLATELET COUNT 237 x10^3/uL (140-400); RED BLOOD COUNT 4.36 x10^6/uL (3.50-5.40); WHITE BLOOD COUNT 7.1 x10^3/uL (4.0-11.0)
[2017-04-14 00:45] LABS: CALCIUM 9.1 mg/dL (8.5-10.1); CREATININE 1.1 mg/dL (0.6-1.0); GFR 47.9
[2017-04-14] MEDS ORDERED: fentaNYL PF VIAL 100 MCG/2 ML VIAL IV ONE (01:00)
[2017-04-14] MEDS ORDERED: IV NORMAL SALINE 500ML BAG 500 ML IV ONE (01:00)
--- NOTE | 2017-04-14 01:38 | RAD ---
CT thoracic spine without contrast: Reason for examination: Pain after fall. Helical images were obtained through the thoracic spine with no contrast administered. Reconstruction was performed in sagittal and coronal planes. The vertebral bodies of the lumbar spine are normally aligned anteriorly and posteriorly no acute fracture or subluxation is seen. The posterior elements appear to be intact. The intervertebral discs are maintained. No spinal stenosis is seen. IMPRESSION: No acute abnormality evident in the thoracic spine. CT lumbar spine without contrast: Helical images were obtained through the lumbar spine with no contrast administered. Reconstruction was performed in sagittal and coronal planes. There appears to be a mild anterior wedge compression deformity of the L1 vertebral body. No other site of acute fracture is seen. There is however a grade 1 anterolisthesis of L4 on L5. And there is some hypertrophic spurring off the anterior endplates at this level. There are some degenerative disc disease with vacuum phenomena at the L4-5 level. There are also hypertrophic changes anteriorly at the L2-3 disc level anteriorly. Remaining disc spaces are maintained. No abnormality seen at the sacrum or at the sacroiliac joints. IMPRESSION: Mild anterior wedge compression fracture of L1. Grade 1 anterolisthesis of L4 on L5 with some hypertrophic changes. Degenerative spondylosis in the lumbar spine. Exposure: One or more of the following individualized dose reduction techniques were utilized for this examination: 1. Automated exposure control 2. Adjustment of the mA and/or kV according to patient size 3. Use of iterative reconstruction technique. Electronically signed by: Danielle Eaton MD (04/14/2017 1:35 AM) [id number]
[2017-04-14] MEDS ORDERED: MORPHINE SULFATE 4 MG/ML DISP.SYRIN. IV ONE (03:00)
[2017-04-14] MEDS ORDERED: MORPHINE SULFATE 4 MG/ML DISP.SYRIN. IV PRN (03:00)
[2017-04-14] MEDS ORDERED: HYDROcodone/APAP 5/325MG 1 TAB TABLET PO ONE (03:00)
[2017-04-14 03:20] VITALS: BP 138/86
[2017-04-14] MEDS ORDERED: INFLUENZA VAX SCREEN BY RX. MC ONE (05:00)
--- NOTE | 2017-04-14 06:21 | EKG ---
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
[2017-04-14 07:00] VITALS: BP 132/70
[2017-04-14] MEDS ORDERED: FLU VACC QS2017-18 (36MOS+)/PF 0.5 ML SYRINGE. VAX IM ONE (09:00)
--- NOTE | 2017-04-14 09:50 | PDOC1 ---
History and Physical Date of Admission Date of Admission DATE: 04/14/17 Identification/Chief Complaint Chief Complaint Back pain after fall Problems: Source Source: Patient History of Present Illness History of Present Illness Pt states that she was in the kitchen last night when she lost her balance and fell backwards. Had excruciating back pain which is what brought her to the emergency room. Pain has improved. Compression fracture of L1 seen on CT. Discussed different options of going to SNF vs going home vs neurosurgery consult for possible cement. Pt is hopeful to be able to go home today with oral pain medication. Discussed that she would need to be seen by physical therapy for their recommendations, but that if they clear her to go home and her pain is well tolerated with oral medications, home tonight is an option. Past Medical History Cardiovascular: HTN Pulmonary: No pertinent hx GI: No pertinent hx Heme/Onc: No pertinent hx Hepatobiliary: No pertinent hx Psych: Anxiety, Depression Musculoskeletal: low back pain, Osteoarthritis Rheumatologic: No pertinent hx Infectious disease: No pertinent hx ENT: No pertinent hx Renal/: No pertinent hx Endocrine: No pertinent hx Dermatology: No pertinent hx Past Surgical History Past Surgical History: Other (carpal tunnel) Family History Family History: Cancer Social History Smoke: No ALCOHOL: none Drugs: None Current Medications Current Medications Current Medications Fentanyl Citrate (Fentanyl 2ml Vial) 75 mcg 1X ONCE IV Last administered on 00:34; Start 04/14/17 at 01:00; Stop 04/14/17 at 01:01; Status DC Sodium Chloride 500 ml @ 500 mls/hr 1X ONCE IV Last administered on 00:35; Start 04/14/17 at 01:00; Stop 04/14/17 at 01:59; Status DC Acetaminophen/ Hydrocodone Bitart (Lortab 5/325) 1 tab 1X ONCE PO ; Start 04/14 at 03:00; Stop 04/14/17 at 03:00; Status DC Morphine Sulfate 4 mg 1X ONCE IV Last administered on 04/14/17 02:51; Start 04/14/17 at 03:00; Stop 04/14/17 at 03:01; Status DC Morphine Sulfate 2 mg PRN Q2HR PRN IV SEVERE PAIN; Start 04/14/17 at 03:00; Stop 04/14/17 at 09:42; Status DC Info (Do NOT chart on this placeholder) 1 each 1X ONCE MC ; Start 04/14/17 at 05:00; Stop 04/14/17 at 05:01; Status UNV Influenza Virus Vaccine Quadrival (Fluarix Quad [id number] Syringe) 0.5 ml ONCE ONCE VAX IM Last administered on 04/14/17t 08:39; Start 04/14/17 at 09:00; Stop 04/14/17 at 09:01; Status DC Acetaminophen/ Hydrocodone Bitart (Lortab ) 1 tab PRN Q6HRS PRN PO PAIN; Start 04/14/17 at 09:45; Status UNV Active Scripts Active Reported No Known Medications Prior To Admisstion (Info) Each 1 Each MC Allergies Allergies: Coded Allergies: Penicillins (Unverified Allergy, Intermediate, 03/28/16) ciprofloxacin (Unverified Allergy, Intermediate, 03/28/16) ROS General: No: Chills, Night Sweats PSYCHOLOGICAL ROS: No: Anxiety, Depression Eyes: No Decreased vision, No Eye Pain HEENT: No: Nasal congestion, Sore Throat ALLERGY AND IMMUNOLOGY: No: Hives, Post Nasal Drip Hematological and Lymphatic: No: Bleeding Problems, Blood Clots Respiratory: No: Cough, Shortness of breath Cardiovascular: No Chest Pain, No Palpitations, No Edema Gastrointestinal: No Nausea, No Vomiting, No Abdominal Pain, No Diarrhea, No Constipation Genitourinary: No Dysuria, No Urgency Musculoskeletal: Yes Joint Pain, Yes Muscle Pain Neurological: No Impaired Coord/balance, No Numbness/Tingling Skin: No Rash, No Skin Lesion Changes Physical Exam General: Alert, Oriented X3, Cooperative, No acute distress HEENT: Atraumatic, PERRLA, EOMI, Mucous membr. moist/pink Lungs: Clear to auscultation, Normal air movement Heart: RRR, no rubs, no gallops, no murmurs Abdomen: Normal bowel sounds, Soft, No tenderness, No hepatosplenomegaly Extremities: No clubbing, No cyanosis, No edema Neuro: Normal speech, Normal tone, Cranial nerves 3-12 NL Psych/Mental Status: Mental status NL, Mood NL Vitals Vitals Vital Signs Date Time Temp Pulse Resp B/P (MAP) Pulse Ox O2 Delivery O2 Flow Rate FiO2 04/14/17 07:00 97.7 68 18 132/70 (90) 94 Room Air 97.7 Labs Labs Laboratory Tests Test 04/14/17 00:27 04/14/17 08:30 White Blood Count 7.1 x10^3/uL (4.0-11.0) Red Blood Count 4.36 x10^6/uL (3.50-5.40) Hemoglobin 13.8 g/dL (12.0-15.5) Hematocrit 41.3 % (36.0-47.0) Mean Corpuscular Volume 95 fL (79-100) Mean Corpuscular Hemoglobin 32 pg (25-35) Mean Corpuscular Hemoglobin Concent 33 g/dL (31-37) Red Cell Distribution Width 14.0 % (11.5-14.5) Platelet Count 237 x10^3/uL (140-400) Neutrophils (%) (Auto) 58 % (31-73) Lymphocytes (%) (Auto) 34 % (24-48) Monocytes (%) (Auto) 7 % (0-9) Eosinophils (%) (Auto) 1 % (0-3) Basophils (%) (Auto) 1 % (0-3) Neutrophils # (Auto) 4.1 x10^3uL (1.8-7.7) Lymphocytes # (Auto) 2.4 x10^3/uL (1.0-4.8) Monocytes # (Auto) 0.5 x10^3/uL (0.0-1.1) Eosinophils # (Auto) 0.1 x10^3/uL (0.0-0.7) Basophils # (Auto) 0.0 x10^3/uL (0.0-0.2) Sodium Level 140 mmol/L (136-145) Potassium Level 4.0 mmol/L (3.5-5.1) Chloride Level 104 mmol/L (98-107) Carbon Dioxide Level 31 mmol/L (21-32) Anion Gap 5 (6-14) Blood Urea Nitrogen 24 mg/dL (7-20) Creatinine 1.1 mg/dL (0.6-1.0) Estimated GFR (Cockcroft-Gault) 47.9 Glucose Level 113 mg/dL (70-99) Calcium Level 9.1 mg/dL (8.5-10.1) Troponin I Quantitative < 0.017 ng/mL (0.000-0.055) < 0.017 ng/mL (0.000-0.055) Laboratory Tests Test 04/14/17 00:27 04/14/17 08:30 White Blood Count 7.1 x10^3/uL (4.0-11.0) Red Blood Count 4.36 x10^6/uL (3.50-5.40) Hemoglobin 13.8 g/dL (12.0-15.5) Hematocrit 41.3 % (36.0-47.0) Mean Corpuscular Volume 95 fL (79-100) Mean Corpuscular Hemoglobin 32 pg (25-35) Mean Corpuscular Hemoglobin Concent 33 g/dL (31-37) Red Cell Distribution Width 14.0 % (11.5-14.5) Platelet Count 237 x10^3/uL (140-400) Neutrophils (%) (Auto) 58 % (31-73) Lymphocytes (%) (Auto) 34 % (24-48) Monocytes (%) (Auto) 7 % (0-9) Eosinophils (%) (Auto) 1 % (0-3) Basophils (%) (Auto) 1 % (0-3) Neutrophils # (Auto) 4.1 x10^3uL (1.8-7.7) Lymphocytes # (Auto) 2.4 x10^3/uL (1.0-4.8) Monocytes # (Auto) 0.5 x10^3/uL (0.0-1.1) Eosinophils # (Auto) 0.1 x10^3/uL (0.0-0.7) Basophils # (Auto) 0.0 x10^3/uL (0.0-0.2) Sodium Level 140 mmol/L (136-145) Potassium Level 4.0 mmol/L (3.5-5.1) Chloride Level 104 mmol/L (98-107) Carbon Dioxide Level 31 mmol/L (21-32) Anion Gap 5 (6-14) Blood Urea Nitrogen 24 mg/dL (7-20) Creatinine 1.1 mg/dL (0.6-1.0) Estimated GFR (Cockcroft-Gault) 47.9 Glucose Level 113 mg/dL (70-99) Calcium Level 9.1 mg/dL (8.5-10.1) Troponin I Quantitative < 0.017 ng/mL (0.000-0.055) < 0.017 ng/mL (0.000-0.055) VTE Prophylaxis Ordered VTE Prophylaxis Devices: Yes VTE Pharmacological Prophylaxi: No Assessment/Plan Assessment/Plan Pt is a 77yo CF admitted for back pain 2/2 compression fracture 1)Compression fracture- pt feels that pain has improved since admission. She is hopeful to go back home tonight. Discussed different options with her; if physical therapy clears her and her pain is controlled with oral medications, going home tonight is definitely a possibility. Pt has known osteoporosis and is taking alendronate at home. 2)Osteoporosis- pt normally takes Alendronate 70mg 3)HTN- with white coat element. BP at goal of <150/90 4)Depression/Anxiety- will resume pt's Escitalopram 10mg 5)CKD- stable JOYA LINCOLN MD Apr 14, 2017 09:50
[2017-04-14] MEDS: CITALOPRAM 10 MG TABLET. PO SCH (10:00)
[2017-04-14 11:00] VITALS: BP 153/79
--- NOTE | 2017-04-14 14:33 | RAD ---
MRI lumbar spine without contrast 04/14/2017 INDICATION: L1 compression fracture COMPARISON: CT lumbar spine 04/14/2017 TECHNIQUE: Multiplanar, multisequence MR imaging of the lumbar spine is performed without intravenous contrast. FINDINGS: There is grade 1 anterolisthesis of L4 on L5. There is a compression fracture involving the L1 vertebral body with approximately 50 percent loss of height. Edema does not extend into the posterior elements. There is no disruption of the posterior longitudinal ligament. Ligamentum flavum is intact. No significant intraspinous or supraspinous ligament is edema is identified. Mild disc edema is noted at the L1-L2 disc. Mild disc desiccation at L2-L3, L3-L4 and L4-L5. Conus terminates at T12-L1. Distal cord signal is normal on all sequences. Subcentimeter renal cysts are present. There is a T2 hypointense lesion in the left kidney measuring 6 mm which likely represents a cyst, a by hemorrhage or protein given T1 signal hyperintensity. Simple hepatic cysts are present. L1-L2: Disc is normal in configuration. No significant facet arthropathy. No neuroforaminal or spinal canal stenosis. L2-L3: Disc is normal in configuration. No significant facet arthropathy. No neuroforaminal or spinal canal stenosis. L3-L4: Disc is normal in configuration. Mild facet arthropathy. No neuroforaminal or spinal canal stenosis. L4-L5: There is uncovering of the disc secondary to anterolisthesis. Mild disc bulge. Moderate facet arthropathy. Mild neural foraminal stenosis. Mild spinal canal stenosis. L5-S1: Disc is normal in configuration. There is moderate facet arthropathy. No neuroforaminal or spinal canal stenosis. IMPRESSION: 1. There is a compression deformity involving the inferior endplate of L1 resulting in 50 percent loss of height. No significant retropulsion. No ligamentous injury. 2. Grade 1 anterolisthesis of L4 on L5, likely secondary to degenerative facet arthropathy. 3. Mild multilevel degenerative changes, as detailed above. Electronically signed by: Sylvia Lemus MD (04/14/2017 2:28 PM) [id number]
[2017-04-14 15:00] VITALS: BP 127/63
[2017-04-14] MEDS: HYDROcodone/APAP 10/325 1 TAB TABLET PO PRN (17:44)
[2017-04-14 19:00] VITALS: BP 132/72
[2017-04-14 23:00] VITALS: BP 139/72
[2017-04-15] VITALS (12 sets, daily range): BP systolic 124–153; BP diastolic 71–103
[2017-04-15] MEDS: HYDROcodone/APAP 10/325 1 TAB TABLET PO PRN ×2 (06:44→21:18)
[2017-04-15 07:57] LABS: BASO % 0 % (0-3); EOS % 1 % (0-3); HEMATOCRIT 41.2 % (36.0-47.0); HEMOGLOBIN 14.1 g/dL (12.0-15.5); LYMPH # 1.9 x10^3/uL (1.0-4.8); LYMPH % 22 % (24-48); MEAN CORPUSCULAR HEMOGLOBIN 32 pg (25-35); MEAN CORPUSCULAR HGB CONC 34 g/dL (31-37); MEAN CORPUSCULAR VOLUME 93 fL (79-100); MONO % 7 % (0-9); NEUT % 70 % (31-73); PLATELET COUNT 228 x10^3/uL (140-400); RED BLOOD COUNT 4.43 x10^6/uL (3.50-5.40); RED CELL DISTRIBUTION WIDTH 13.6 % (11.5-14.5); WHITE BLOOD COUNT 8.5 x10^3/uL (4.0-11.0)
[2017-04-15 08:11] LABS: CALCIUM 8.8 mg/dL (8.5-10.1); CREATININE 0.9 mg/dL (0.6-1.0); GFR 60.4; POTASSIUM 3.6 mmol/L (3.5-5.1)
--- NOTE | 2017-04-15 08:20 | PDOC ---
SUBJECTIVE Subjective Pt accompanied by daughter this morning. Evaluated by physical therapy who recommended that pt go to SNF; still having difficulty getting in and out of bed. Pt considering kyphoplasty this morning but still undecided; she is currently NPO. OBJECTIVE Vital Signs Vital Signs Date Time Temp Pulse Resp B/P (MAP) Pulse Ox O2 Delivery O2 Flow Rate FiO2 04/15/17 07:15 98.0 69 20 146/103 (117) 94 Room Air 98.0 04/15/17 06:44 97 Room Air 04/15/17 03:00 98.1 81 18 141/82 (101) 97 Room Air 98.1 04/14/17 23:00 97.8 68 18 139/72 (94) 96 Room Air 97.8 04/14/17 20:30 Room Air 04/14/17 19:00 97.7 66 17 132/72 (92) 96 Room Air 97.7 04/14/17 18:44 16 Room Air 04/14/17 17:44 Room Air 04/14/17 15:00 98.1 72 18 127/63 (84) 95 Room Air 98.1 04/14/17 11:00 96.3 61 18 153/79 (103) 96 Room Air 96.3 PHYSICAL EXAM Physical Exam General: Alert, Oriented X3, Cooperative, No acute distress HEENT: Atraumatic, PERRLA, EOMI, Mucous membr. moist/pink Lungs: Clear to auscultation, Normal air movement Heart: RRR, no rubs, no gallops, no murmurs Abdomen: Normal bowel sounds, Soft, No tenderness, No hepatosplenomegaly Extremities: No clubbing, No cyanosis, No edema Neuro: Normal speech, Normal tone, Cranial nerves 3-12 NL Psych/Mental Status: Mental status NL, Mood NL ASSESSMENT/PLAN Assessment/Plan Pt is a 77yo CF admitted for back pain 2/2 compression fracture 1)Compression fracture- pt feels that pain has improved since admission. Physical therapy has recommended SNF which she is hesitant, but sounds willing. Pt has known osteoporosis and is taking alendronate at home. Pt considering kyphoplasty 2)Osteoporosis- pt normally takes Alendronate 70mg 3)HTN- with white coat element. BP at goal of <150/90 4)Depression/Anxiety- pt resumed on Escitalopram 10mg but has refused taking 5)CKD- stable Problems: COMMENT Lab Laboratory Tests Test 04/14/17 08:30 04/14/17 14:45 04/15/17 06:55 Troponin I Quantitative < 0.017 ng/mL (0.000-0.055) < 0.017 ng/mL (0.000-0.055) White Blood Count 8.5 x10^3/uL (4.0-11.0) Red Blood Count 4.43 x10^6/uL (3.50-5.40) Hemoglobin 14.1 g/dL (12.0-15.5) Hematocrit 41.2 % (36.0-47.0) Mean Corpuscular Volume 93 fL (79-100) Mean Corpuscular Hemoglobin 32 pg (25-35) Mean Corpuscular Hemoglobin Concent 34 g/dL (31-37) Red Cell Distribution Width 13.6 % (11.5-14.5) Platelet Count 228 x10^3/uL (140-400) Neutrophils (%) (Auto) 70 % (31-73) Lymphocytes (%) (Auto) 22 % (24-48) Monocytes (%) (Auto) 7 % (0-9) Eosinophils (%) (Auto) 1 % (0-3) Basophils (%) (Auto) 0 % (0-3) Neutrophils # (Auto) 6.0 x10^3uL (1.8-7.7) Lymphocytes # (Auto) 1.9 x10^3/uL (1.0-4.8) Monocytes # (Auto) 0.6 x10^3/uL (0.0-1.1) Eosinophils # (Auto) 0.0 x10^3/uL (0.0-0.7) Basophils # (Auto) 0.0 x10^3/uL (0.0-0.2) Sodium Level 138 mmol/L (136-145) Potassium Level 3.6 mmol/L (3.5-5.1) Chloride Level 103 mmol/L (98-107) Carbon Dioxide Level 25 mmol/L (21-32) Anion Gap 10 (6-14) Blood Urea Nitrogen 11 mg/dL (7-20) Creatinine 0.9 mg/dL (0.6-1.0) Estimated GFR (Cockcroft-Gault) 60.4 Glucose Level 106 mg/dL (70-99) Calcium Level 8.8 mg/dL (8.5-10.1) JOYA LINCOLN MD Apr 15, 2017 08:20
[2017-04-15] MEDS: CITALOPRAM 10 MG TABLET. PO SCH (08:31)
[2017-04-15 09:38] LABS: PROTHROMBIN TIME PATIENT 12.5 SEC (11.7-14.0)
[2017-04-15] MEDS ORDERED: IOHEXOL 300 MG/ML 50 ML VIAL. ONE (14:04)
[2017-04-15] MEDS ORDERED: LIDOCAINE 1% / SOD BICARB 8.4% 20 ML VIAL. IJ ONE ×2 (14:05→15:45)
--- NOTE | 2017-04-15 14:44 | PDOC1 ---
IR Pre-Procedure H&P H&P Update L1 fracture confirmed to be acute on MRI. Persistent pain. Patient desires to have kyphoplasty performed. Otherwise no significant change from Dr. Wiggins's admit H&P done 04/14/17. LORI CORRALES MD Apr 15, 2017 14:44
[2017-04-15] MEDS ORDERED: MIDAZOLAM HCL/PF 5 MG/5 ML VIAL. ONE (15:09)
[2017-04-15] MEDS ORDERED: CLINDAMYCIN 600MG PREMIX 50 ML IV ONE (15:10)
[2017-04-15] MEDS ORDERED: fentaNYL PF VIAL 250 MCG/5 ML VIAL ONE (15:10)
[2017-04-15] MEDS ORDERED: MIDAZOLAM HCL/PF 5 MG/5 ML VIAL. IV ONE (15:45)
[2017-04-15] MEDS ORDERED: fentaNYL PF VIAL 250 MCG/5 ML VIAL IV ONE (15:45)
[2017-04-15] MEDS ORDERED: IOHEXOL 300 MG/ML 50 ML VIAL. IART ONE (15:45)
--- NOTE | 2017-04-15 15:45 | PDOC ---
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
--- NOTE | 2017-04-15 16:11 | RAD ---
PROCEDURES: 1. Left transpedicular kyphoplasty The procedure, risks, and complications, to include bleeding, infection, cement embolization, compression of the spinal canal and cement extrusion were explained to the patient and her daughters and they understood and wished to proceed. Consent form signed. The back was prepped and draped using maximal sterile technique and 1% Xylocaine used for local topical anesthesia and deep periosteal anesthesia. Utilizing careful fluoroscopic biplane positioning, the L1 pedicles were identified. Using a left transpedicular approach, a trocar needle into the posterior aspect of the L1 vertebral body. Using curved needle technique, the kyphoplasty balloon was advanced across midline in the vertebral body. Kyphoplasty was then performed under fluoroscopic guidance. Balloon was deflated and carefully removed. Under very careful biplane fluoroscopic guidance, curved cement needle was advanced across midline. Polymethylmethacrylate was carefully injected into the vertebral body filling the the site of the compression fracture. Following the cement injections, the needles were removed, pressure placed, and hemostasis obtained. The patient tolerated the procedure well and returned to the floor in stable condition. Sedation: Conscious sedation for 34 minutes. Intravenous versed and fentanyl were given and the patient was monitored by the nurses in attendance. Complications: None Antibiotics: Cleocin 600mg IV Fluoroscopy time: 8.0 minutes DAP: 579.9 uGycm2 IMPRESSION: 1. Fluoroscopy-guided percutaneous transpedicular L1 kyphoplasty.
[2017-04-16 03:27] VITALS: BP 122/72
[2017-04-16 07:15] VITALS: BP 145/93
[2017-04-16] MEDS: CITALOPRAM 10 MG TABLET. PO SCH (08:06)
--- NOTE | 2017-04-16 09:19 | PDOC ---
SUBJECTIVE Subjective Pt says that her pain is pretty well controlled. Family state that she still has difficulty getting out of bed. Pt not wants to go home, but is willing to go to SNF for a short period of time. OBJECTIVE Vital Signs Vital Signs Date Time Temp Pulse Resp B/P (MAP) Pulse Ox O2 Delivery O2 Flow Rate FiO2 04/16/17 07:15 98.2 78 18 145/93 (110) 96 Room Air 98.2 04/16/17 03:27 98.0 68 16 122/72 (89) 96 Room Air 98.0 04/15/17 23:28 98.0 66 18 147/85 (105) 95 Room Air 98.0 04/15/17 22:20 95 Room Air 04/15/17 21:18 96 Room Air 04/15/17 20:20 Room Air 04/15/17 19:15 97.5 74 18 124/74 (91) 96 Room Air 97.5 04/15/17 18:00 97.0 68 18 149/77 (101) 97 Room Air 97.0 04/15/17 17:30 140/73 (95) 04/15/17 17:00 97.3 60 20 138/71 (93) 97 Room Air 97.3 04/15/17 16:45 139/78 (98) 04/15/17 16:30 140/82 (101) 04/15/17 16:15 97.9 63 18 147/74 (98) 96 Room Air 97.9 04/15/17 15:49 14 100 Room Air 04/15/17 15:46 70 14 100 Room Air 04/15/17 11:17 65 18 138/79 (98) 95 Room Air PHYSICAL EXAM Physical Exam General: Alert, Oriented X3, Cooperative, No acute distress HEENT: Atraumatic, PERRLA, EOMI, Mucous membr. moist/pink Lungs: Clear to auscultation, Normal air movement Heart: RRR, no rubs, no gallops, no murmurs Abdomen: Normal bowel sounds, Soft, No tenderness, No hepatosplenomegaly Extremities: No clubbing, No cyanosis, No edema Neuro: Normal speech, Normal tone, Cranial nerves 3-12 NL Psych/Mental Status: Mental status NL, Mood NL ASSESSMENT/PLAN Assessment/Plan Pt is a 77yo CF admitted for back pain 2/2 compression fracture 1)Compression fracture- s/p kyphoplasty. Pt feels that pain has improved. Planning on D/C to SNF on Friday. Pt has known osteoporosis and is taking alendronate at home. Pt considering kyphoplasty 2)Osteoporosis- pt normally takes Alendronate 70mg 3)HTN- with white coat element. BP at goal of <150/90 4)Depression/Anxiety- pt resumed on Escitalopram 10mg but has refused taking 5)CKD- stable Problems: JOYA LINCOLN MD Apr 16, 2017 09:19
[2017-04-16 11:05] VITALS: BP 130/72
[2017-04-16 15:10] VITALS: BP 120/69
[2017-04-16 19:00] VITALS: BP 154/84
[2017-04-16] MEDS: HYDROcodone/APAP 10/325 1 TAB TABLET PO PRN (21:11)
[2017-04-16 23:00] VITALS: BP 156/93
[2017-04-17 03:00] VITALS: BP 137/75
[2017-04-17 07:00] VITALS: BP 130/90
--- NOTE | 2017-04-17 08:08 | PDOC ---
SUBJECTIVE Subjective Pt says that she is doing okay. She has been not taking her anti-depressant but daughter says that she thinks it would be best if pt would restart it, and she says that she is willing today. OBJECTIVE Vital Signs Vital Signs Date Time Temp Pulse Resp B/P (MAP) Pulse Ox O2 Delivery O2 Flow Rate FiO2 04/17/17 03:00 97.5 65 18 137/75 (95) 96 Room Air 97.5 04/16/17 23:00 97.9 73 18 156/93 (114) 96 Room Air 97.9 04/16/17 22:15 98 Room Air 04/16/17 21:11 98 Room Air 04/16/17 20:50 Room Air 04/16/17 19:00 97.7 78 20 154/84 (107) 98 Room Air 97.7 04/16/17 15:10 97.3 66 18 120/69 (86) 96 Room Air 97.3 04/16/17 11:05 97.8 63 16 130/72 (91) 97 Room Air 97.8 PHYSICAL EXAM Physical Exam General: Alert, Oriented X3, Cooperative, No acute distress HEENT: conjunctival hemorrhage right eye, PERRLA, EOMI, Mucous membr. moist/ pink Lungs: Clear to auscultation, Normal air movement Heart: RRR, no rubs, no gallops, no murmurs Abdomen: Normal bowel sounds, Soft, No tenderness, No hepatosplenomegaly Extremities: No clubbing, No cyanosis, No edema Neuro: Normal speech, Normal tone, Cranial nerves 3-12 NL Psych/Mental Status: Mental status NL, Mood NL ASSESSMENT/PLAN Assessment/Plan Pt is a 77yo CF admitted for back pain 2/2 compression fracture 1)Compression fracture- 2/2 osteoporosis and fall, s/p kyphoplasty. Pt feels that pain has improved. Planning on D/C to SNF on Friday. 2)Osteoporosis- pt normally takes Alendronate 70mg 3)HTN- with white coat element. BP at goal of <150/90 4)Depression/Anxiety- pt resumed on Escitalopram 10mg but was refusing to take it. Has been having angry outbursts with family, willing to restart 5)CKD- stable Problems: JOYA LINCOLN MD Apr 17, 2017 08:07
[2017-04-17] MEDS: CITALOPRAM 10 MG TABLET. PO SCH (09:20)
[2017-04-17] MEDS: HYDROcodone/APAP 10/325 1 TAB TABLET PO PRN ×2 (09:21→23:36)
[2017-04-17 11:00] VITALS: BP 157/75
[2017-04-17 15:00] VITALS: BP 126/67
[2017-04-17 19:00] VITALS: BP 113/67
[2017-04-17 23:00] VITALS: BP 137/75
[2017-04-18 03:00] VITALS: BP 133/76
[2017-04-18 07:00] VITALS: BP 134/66
--- NOTE | 2017-04-18 07:51 | PDOC3 ---
Discharge Summary* Date of Admission: Apr 14, 2017 Date of Discharge: Apr 18, 2017 Admitting Diagnosis Fall, Compression Fracture L1 Problems: Final Diagnosis Compression fracture- 2/2 osteoporosis and fall, s/p kyphoplasty, Osteoporosis, HTN with white coat element, Depression/Anxiety, Dementia, CKD- Stage 2 CONSULTS Interventional Radiology Procedures Thoracic/Lumbar CT Spine- no acute abnormalities in thoracic spine, mild anterior wedge compression fracture of L1. Grade 1 anterolisthesis of L4 on L5 with some hypertrophic changes. Degenerative spondylosis in lumbar spine Brief Hospital Course DISCHARGE PHYSICAL EXAM General: Alert, Oriented X3, Cooperative, No acute distress HEENT: conjunctival hemorrhage right eye, PERRLA, EOMI, Mucous membr. moist/ pink Lungs: Clear to auscultation, Normal air movement Heart: RRR, no rubs, no gallops, no murmurs Abdomen: Normal bowel sounds, Soft, No tenderness, No hepatosplenomegaly Extremities: No clubbing, No cyanosis, No edema Neuro: Normal speech, Normal tone, Cranial nerves 3-12 NL Psych/Mental Status: Mental status NL, Mood NL Pt is a 77yo CF admitted for back pain 2/2 compression fracture 1)Compression fracture- 2/2 osteoporosis and fall, s/p kyphoplasty. Pt feels that pain has improved. Planning on D/C to SNF today 2)Osteoporosis- pt normally takes Alendronate 70mg 3)HTN- with white coat element. BP at goal of <150/90 4)Depression/Anxiety- pt resumed on Escitalopram 10mg but was refusing to take it. Has been having angry outbursts with family, willing to restart 5)CKD- stage 2, stable Disposition/Orders: D/C to Another Facility CONDITION AT DISCHARGE: Improved, Stable Diet: Regular Miscellaneous Medications Info (No Known Medications Prior To Admisstion), 1 EACH , (Reported) PCP Follow up with Dr. Montelongo within 2 weeks of being discharged from [facility] Time Spent Total time spent with patient [] minutes for coordination of care, counseling, and education. JOYA LINCOLN MD Apr 18, 2017 07:51
[2017-04-18] MEDS: CITALOPRAM 10 MG TABLET. PO SCH (10:20)
[2017-04-18] MEDS: HYDROcodone/APAP 10/325 1 TAB TABLET PO PRN (10:20)
[2017-04-18 11:00] VITALS: BP 141/81
== END 2017-04-18 13:15 | DRG 516 ==
LOC: ER 00:13 → 4 NORTH 02:52 → OBSVTOIN 04-15 11:37
PROVIDERS: ADMIT Family Medicine; ATTEND Family Medicine
PROC: 0QS03ZZ Reposition Lumbar Vertebra, Percutaneous Approach (ICD-10-PCS; principal; 2017-04-15)
PROC: 0QU03JZ Supplement Lumbar Vertebra with Synthetic Substitute, Percutaneous Approach (ICD-10-PCS; 2017-04-15)
DX: M80.08XA Age-related osteoporosis with current pathological fracture, vertebra(e), initial encounter for fracture (principal); R64 Cachexia; Z68.1 Body mass index [BMI] 19.9 or less, adult; F03.90 Unspecified dementia, unspecified severity, without behavioral disturbance, psychotic disturbance, mood disturbance, and anxiety; F41.9 Anxiety disorder, unspecified; F32.9 Major depressive disorder, single episode, unspecified; M19.90 Unspecified osteoarthritis, unspecified site; N18.2 Chronic kidney disease, stage 2 (mild); I12.9 Hypertensive chronic kidney disease with stage 1 through stage 4 chronic kidney disease, or unspecified chronic kidney disease; Z88.1 Allergy status to other antibiotic agents; Z88.0 Allergy status to penicillin; Z23 Encounter for immunization
CPT/HCPCS: 22514; 36415; 72128; 72131; 72148; 80048; 84484; 85025; 85610; 90686; 93005; 96361; 96374; 96375; 99152; 99153; C1725; C1892; G0378; G0379; J2250; J2270; J3010; J7040; Q9967; 97116; 97530; 97535; 99285-25

== ENCOUNTER 2017-06-03 12:12 | Emergency (ER) | payer MEDICARE ==
[~2017-06-03] VITALS: Ht 160 cm; Wt 49.9 kg
--- NOTE | 2017-06-03 12:40 | PHYS DOC ---
Past Medical History Past Medical History: Dementia, Unknown, Other Additional Past Medical Histor: Alzbibiana's Past Surgical History: Pacemaker Additional Past Surgical Histo: UNKNOWN Alcohol Use: None Drug Use: None Adult General Chief Complaint Chief Complaint: WEAKNESS/GENERALIZED HPI HPI 77-year-old female presenting to the emergency department with increasing generalized weakness and confusion. She does have a history of chronic dementia and is at baseline oriented to person and place. Her whom she lives at home with called paramedics after noticing she was generally weak. She is calm and cooperative in the examination room. She answers appropriately. She is alert. She denies any pain anywhere. She reports falling a few days ago however has a hx of dementia. onset 2-3 days. location generalized. duration constant. no alleviating factors. Review of systems is negative for abdominal pain nausea vomiting chest pain shortness of breath fevers chills unilateral numbness weakness or tingling. She denies blood in her stools. She denies polyuria or dysuria. All other review of systems is negative unless otherwise noted in history of present illness. ED course: 77-year-old female reporting generalized weakness and confusion presenting to the emergency department today. On arrival the patient is afebrile with a normal heart rate normal rest for rate. She is comfortable in the examination room. Initially she mentioned falling a few days ago however on secondary survey she has no evidence of trauma to the head or neck. No abrasions lacerations or ecchymosis that I can identify on her head neck back or legs. She has nontender extremities with normal range of motion. Her hips have normal range of motion without any pain. Abdomen is soft and nontender. Upon arrival, IV established, blood work sent, x-ray of the chest and CT of the head and neck were ordered. Workup shows urinary tract infection. I discussed the case with the patient's primary care physician who knows the patient and her family well. The patient had an ambulatory trial in the emergency department was able to ambulate at baseline. Family here with the patient today feels comfortable with outpatient plan. Primary care physician is able to see the patient on Friday due to the holidays cannot get into the clinic until next week. We will initiate the patient on Bactrim for urinary tract infection. The patient was then discharged home in stable condition to follow up with their primary care physician as above. They were to return if their symptoms worsened or if they were concerned for any reason. [id number] discharge instructions and return precautions were given. Patient's questions were answered to their satisfaction. Patient is comfortable plan. Review of Systems Review of Systems SEE ABOVE. Current Medications Current Medications Current Medications Medications (Trade) Dose Ordered Sig/Sherrie Start Time Stop Time Status Last Admin Dose Admin Levofloxacin/ Dextrose (Levaquin Per Pharmacy) 1 each PRN DAILY PRN 06/03/17 14:45 UNV Morphine Sulfate 2 mg PRN Q2HR PRN 06/03/17 14:45 06/04/17 14:44 Ondansetron HCl (Zofran) 4 mg PRN Q8HRS PRN 06/03/17 14:45 06/04/17 14:44 Sodium Chloride 1,000 ml @ 100 mls/hr Q10H 06/03/17 14:31 06/04/17 02:30 06/03/17 14:31 100 MLS/HR Trimethoprim/ Sulfamethoxazole (Bactrim Ds) 1 tab 1X ONCE 06/03/17 15:00 06/03/17 15:01 DC 06/03/17 15:00 1 TAB Trimethoprim/ Sulfamethoxazole 20 ml/Dextrose 500 ml @ 333.333 mls/hr Q8HRS 06/03/17 22:00 UNV Allergies Allergies Allergies Coded Allergies Type Severity Reaction Last Updated Verified Penicillins Allergy Intermediate 04/17/17 Yes ciprofloxacin Allergy Intermediate 04/17/17 Yes Physical Exam Physical Exam SEE ABOVE Constitutional: Well developed, well nourished, no acute distress, non-toxic appearance. [] HENT: Normocephalic, atraumatic, bilateral external ears normal, oropharynx moist, no oral exudates, nose normal. [] Eyes: PERRLA, EOMI, conjunctiva normal, no discharge. [] Neck: Normal range of motion, no tenderness, supple, no stridor. [] Cardiovascular:Heart rate regular rhythm, no murmur [] Lungs & Thorax: Bilateral breath sounds clear to auscultation [] Abdomen: Bowel sounds normal, soft, no tenderness, no masses, no pulsatile masses. [] Skin: Warm, dry, no erythema, no rash. [] Back: No tenderness, no CVA tenderness. [] No evidence of step-offs lacerations abrasions or ecchymosis. Extremities: No tenderness, no cyanosis, no clubbing, ROM intact, no edema. [] Patient has 2+ deep tendon reflexes in the knees. 5 out of 5 strength in the legs. Neurologic: Alert and oriented X 3, normal motor function, normal sensory function, no focal deficits noted. [] Psychologic: Affect normal, judgement normal, mood normal. [] Current Patient Data Vital Signs Vital Signs Date Time Temp Pulse Resp B/P (MAP) Pulse Ox O2 Delivery O2 Flow Rate FiO2 06/03/17 14:35 66 25 96 06/03/17 12:15 97.8 151/101 (118) Room Air 97.8 Lab Values Laboratory Tests Test 06/03/17 12:40 06/03/17 13:39 White Blood Count 9.8 x10^3/uL (4.0-11.0) Red Blood Count 4.72 x10^6/uL (3.50-5.40) Hemoglobin 14.9 g/dL (12.0-15.5) Hematocrit 44.2 % (36.0-47.0) Mean Corpuscular Volume 94 fL (79-100) Mean Corpuscular Hemoglobin 32 pg (25-35) Mean Corpuscular Hemoglobin Concent 34 g/dL (31-37) Red Cell Distribution Width 13.1 % (11.5-14.5) Platelet Count 343 x10^3/uL (140-400) Neutrophils (%) (Auto) 72 % (31-73) Lymphocytes (%) (Auto) 19 % (24-48) L Monocytes (%) (Auto) 8 % (0-9) Eosinophils (%) (Auto) 0 % (0-3) Basophils (%) (Auto) 1 % (0-3) Neutrophils # (Auto) 7.1 x10^3uL (1.8-7.7) Lymphocytes # (Auto) 1.9 x10^3/uL (1.0-4.8) Monocytes # (Auto) 0.8 x10^3/uL (0.0-1.1) Eosinophils # (Auto) 0.0 x10^3/uL (0.0-0.7) Basophils # (Auto) 0.0 x10^3/uL (0.0-0.2) Sodium Level 139 mmol/L (136-145) Potassium Level 3.5 mmol/L (3.5-5.1) Chloride Level 99 mmol/L (98-107) Carbon Dioxide Level 28 mmol/L (21-32) Anion Gap 12 (6-14) Blood Urea Nitrogen 15 mg/dL (7-20) Creatinine 1.0 mg/dL (0.6-1.0) Estimated GFR (Cockcroft-Gault) 53.5 Glucose Level 108 mg/dL (70-99) H Lactic Acid Level 1.2 mmol/L (0.4-2.0) Calcium Level 9.7 mg/dL (8.5-10.1) Total Bilirubin 0.8 mg/dL (0.2-1.0) Direct Bilirubin 0.1 mg/dL (0.0-0.2) Aspartate Amino Transferase (AST) 18 U/L (15-37) Alanine Aminotransferase (ALT) 18 U/L (14-59) Alkaline Phosphatase 84 U/L (46-116) Troponin I Quantitative < 0.017 ng/mL (0.000-0.055) BK-Scl-H-Type Natriuretic Peptide 727 pg/mL (0-449) H Total Protein 8.2 g/dL (6.4-8.2) Albumin 3.5 g/dL (3.4-5.0) Lipase 141 U/L (73-393) Urine Collection Type Unknown Urine Color Yellow Urine Clarity Cloudy Urine pH 7.5 Urine Specific Nucla 1.010 Urine Protein 30 mg/dL (NEG-TRACE) Urine Glucose (UA) Negative mg/dL (NEG) Urine Ketones (Stick) Negative mg/dL (NEG) Urine Blood Small (NEG) Urine Nitrite Positive (NEG) Urine Bilirubin Negative (NEG) Urine Urobilinogen Dipstick 0.2 mg/dL (0.2 mg/dL) Urine Leukocyte Esterase Negative (NEG) Urine RBC Occ /HPF (0-2) Urine WBC Occ /HPF (0-4) Urine Squamous Epithelial Cells Few /LPF Urine Amorphous Sediment Present /HPF Urine Bacteria Many /HPF (0-FEW) Urine Mucus Slight /LPF Laboratory Tests 06/03/17 12:40 Laboratory Tests 06/03/17 12:40 EKG EKG [] Radiology/Procedures Radiology/Procedures [] Course & Med Decision Making Course & Med Decision Making Pertinent Labs and Imaging studies reviewed. (See chart for details) [] Dragon Disclaimer Dragon Disclaimer This electronic medical record was generated, in whole or in part, using a voice recognition dictation system. Departure Departure Impression: Primary Impression: Generalized weakness Additional Impression: Urinary tract infection Disposition: HOME, SELF-CARE Condition: STABLE Referrals: GLO MONTELONGO MD (PCP) Patient Instructions: Urinary Tract Infection, Weakness, [id number] Additional Instructions: Thank you for allowing us to participate in your care today. Take your antibiotic as prescribed. Follow-up with Dr. Montelongo on Friday. If you do not have a primary care provider you can ask for a list of our primary care providers. Return to the emergency department you have any new or concerning findings. This should be evaluated by the primary care physician and any necessary consulting services for continued management within a few days after discharge. Return to emergency room if you have any new or concerning symptoms including but not limited to fever, chills, nausea, vomiting, intractable pain, any new rashes, chest pain, shortness of air, uncontrolled bleeding, difficulty breathing, and/or vision loss. Scripts Sulfamethoxazole/Trimethoprim (BACTRIM DS TABLET) 1 Each Tablet 1 TAB PO BID, #14 TAB Prov: FELICIANO HANLEY MD 06/03/17 Problem Qualifiers FELICIANO HANLEY MD Jun 03, 2017 12:40
[2017-06-03 12:57] LABS: BASO % 1 % (0-3); EOS % 0 % (0-3); HEMATOCRIT 44.2 % (36.0-47.0); HEMOGLOBIN 14.9 g/dL (12.0-15.5); LYMPH # 1.9 x10^3/uL (1.0-4.8); LYMPH % 19 % (24-48); MEAN CORPUSCULAR HEMOGLOBIN 32 pg (25-35); MEAN CORPUSCULAR HGB CONC 34 g/dL (31-37); MEAN CORPUSCULAR VOLUME 94 fL (79-100); MONO % 8 % (0-9); NEUT % 72 % (31-73); PLATELET COUNT 343 x10^3/uL (140-400); RED BLOOD COUNT 4.72 x10^6/uL (3.50-5.40); RED CELL DISTRIBUTION WIDTH 13.1 % (11.5-14.5); WHITE BLOOD COUNT 9.8 x10^3/uL (4.0-11.0)
[2017-06-03 13:05] LABS: CALCIUM 9.7 mg/dL (8.5-10.1); GFR 53.5; POTASSIUM 3.5 mmol/L (3.5-5.1)
[2017-06-03 13:20] LABS: ALBUMIN 3.5 g/dL (3.4-5.0); DIRECT BILIRUBIN 0.1 mg/dL (0.0-0.2); TOTAL BILIRUBIN 0.8 mg/dL (0.2-1.0); TOTAL PROTEIN 8.2 g/dL (6.4-8.2)
--- NOTE | 2017-06-03 13:28 | RAD ---
CT of the head and cervical spine without contrast History:CONFUSION, WEAKNESS, RECENT FALL, NO PRIOR. Technique: Standard noncontrast images are obtained through the head and cervical spine. Sagittal and coronal reformations obtained through the cervical spine. Exposure: One or more of the following individualized dose reduction techniques were utilized for this examination: 1. Automated exposure control 2. Adjustment of the mA and/or kV according to patient size 3. Use of iterative reconstruction technique. Head: Posterior fossa is unremarkable No evidence of acute intracranial hemorrhage, mass effect, midline shift or abnormal extra-axial fluid collection. Ventricles and sulci are enlarged compatible with atrophy. Low-density of the white matter bilaterally, a nonspecific finding which is typically due to chronic small vessel ischemic disease in a patient of this age. Intracranial arterial calcifications are identified. Visualized orbits are unremarkable. Visualized paranasal sinuses and mastoids are clear. No acute calvarial abnormality Impression: 1. Cerebral atrophy. 2. Extensive white matter low density, commonly represents chronic small vessel ischemic disease in a patient of this age. 3. No evidence of acute intracranial abnormality. Cervical: Lower skull is unremarkable Ring of C1 is intact Relationship of C1 with the occipital condyles is intact. Relationship of C1 with C2 is maintained. No acute fracture. No bone destruction. Degenerative changes of the intervertebral disks and the facet joints. Minimal retrolisthesis of C5 relative to C4 and C6. No evidence of perched or locked facet joint. Multilevel neural foraminal stenosis bilaterally. The paraspinous soft tissues are unremarkable. Lung apices are clear. Impression: Degenerative changes. No evidence of acute fracture or traumatic subluxation. Electronically signed by: Dileep Krishnan MD (06/03/2017 1:25 PM) [id number]
[2017-06-03 13:52] LABS: BILIRUBIN,URINE NEGATIVE (NEG); GLUCOSE,URINE NEGATIVE (NEG); NITRITE,URINE POSITIVE (NEG); PH,URINE 7.5; PROTEIN,URINE 30 mg/dL (NEG-TRACE); UROBILINOGEN,URINE 0.2 mg/dL (0.2 mg/dL)
[2017-06-03 14:03] LABS: BACTERIA,URINE MANY /HPF (0-FEW); RBC,URINE OCC /HPF (0-2); SQUAMOUS EPITHELIAL CELL,UR FEW /LPF; WBC,URINE OCC /HPF (0-4)
--- NOTE | 2017-06-03 14:10 | RAD ---
Single view of the Chest 06/03/2017 2:20 PM Indication: gen weakness Comparison: None Findings: No pneumothorax or pleural effusion is seen. No acute focal infiltrate is identified. Heart size is normal. Bony thorax is grossly intact. Cardiac monitoring device. She presents projecting over the left mediastinum. Impression: No evidence of acute cardiopulmonary process
--- NOTE | 2017-06-03 14:18 | EKG ---
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
[2017-06-03] MEDS ORDERED: IV NORMAL SALINE 1000ML BAG 1,000 ML IV SCH (14:31)
[2017-06-03 14:35] VITALS: BP 185/86
[2017-06-03] MEDS ORDERED: levOFLOXacin PER PHARMACY. MC PRN (14:45)
[2017-06-03] MEDS ORDERED: MORPHINE SULFATE 2 MG/ML DISP.SYRIN. IV PRN (14:45)
[2017-06-03] MEDS ORDERED: ONDANSETRON PF 4 MG/2 ML VIAL. IV PRN (14:45)
[2017-06-03] MEDS ORDERED: SMZ/TMP 800/160MG TABLET. PO ONE (15:00)
[2017-06-03] MEDS ORDERED: SULF1TAB24 PO (16:00)
[2017-06-03] MEDS ORDERED: SULFAMETH/TRIMETH 20 ML in IV DEXTROSE 5% 500 ML IV SCH (22:00)
== END 2017-06-03 17:00 | disposition home or self-care (01) ==
LOC: ER 12:12
DX: R53.1 Weakness (principal); N39.0 Urinary tract infection, site not specified; R41.0 Disorientation, unspecified; F03.90 Unspecified dementia, unspecified severity, without behavioral disturbance, psychotic disturbance, mood disturbance, and anxiety; G30.9 Alzheimer's disease, unspecified; F02.80 Dementia in other diseases classified elsewhere, unspecified severity, without behavioral disturbance, psychotic disturbance, mood disturbance, and anxiety; Z95.0 Presence of cardiac pacemaker; Z88.0 Allergy status to penicillin; Z88.1 Allergy status to other antibiotic agents
CPT/HCPCS: 36415; 51701; 70450; 71010; 72125; 80048; 80076; 81001; 83605; 83690; 83880; 84484; 85025; 87086; 93005; 96360; 96361; 99285; J7030

== ENCOUNTER 2017-08-08 15:11 | Emergency (ER) | payer MEDICARE ==
[2017-08-08 15:42] LABS: BILIRUBIN,URINE NEGATIVE (NEG); CLARITY,URINE CLEAR; COLOR,URINE YELLOW; GLUCOSE,URINE NEGATIVE (NEG); NITRITE,URINE POSITIVE (NEG); PROTEIN,URINE NEGATIVE (NEG-TRACE)
[2017-08-08 15:50] LABS: BASO % 0 % (0-3); EOS % 0 % (0-3); HEMATOCRIT 40.9 % (36.0-47.0); LYMPH # 0.7 x10^3/uL (1.0-4.8); LYMPH % 5 % (24-48); MEAN CORPUSCULAR HEMOGLOBIN 32 pg (25-35); MEAN CORPUSCULAR HGB CONC 34 g/dL (31-37); MEAN CORPUSCULAR VOLUME 92 fL (79-100); MONO # 0.7 x10^3/uL (0.0-1.1); MONO % 5 % (0-9); NEUT # 13.6 x10^3uL (1.8-7.7); NEUT % 90 % (31-73); PLATELET COUNT 305 x10^3/uL (140-400); RED BLOOD COUNT 4.43 x10^6/uL (3.50-5.40); RED CELL DISTRIBUTION WIDTH 13.8 % (11.5-14.5)
[2017-08-08 15:51] LABS: ADD MAN DIFF? YES
[2017-08-08 15:55] LABS: BACTERIA,URINE 0 /HPF (0-FEW); RBC,URINE 0 /HPF (0-2); SQUAMOUS EPITHELIAL CELL,UR FEW /LPF; WBC,URINE OCC /HPF (0-4)
[2017-08-08 16:03] LABS: ANION GAP 11 (6-14); BLOOD UREA NITROGEN 17 mg/dL (7-20); BUN/CREATININE RATIO 13 (6-20); CALCIUM 9.5 mg/dL (8.5-10.1); CARBON DIOXIDE 28 mmol/L (21-32); CHLORIDE 98 mmol/L (98-107); CREATININE 1.3 mg/dL (0.6-1.0); GFR 39.5; GLUCOSE 163 mg/dL (70-99); SODIUM 137 mmol/L (136-145)
[2017-08-08 16:08] LABS: ALBUMIN 3.3 g/dL (3.4-5.0); ALBUMIN/GLOBULIN RATIO 0.8 (1.0-1.7); ALK PHOS 99 U/L (46-116); ALT (SGPT) 19 U/L (14-59); AST (SGOT) 20 U/L (15-37); TOTAL BILIRUBIN 0.5 mg/dL (0.2-1.0); TOTAL PROTEIN 7.2 g/dL (6.4-8.2)
[2017-08-08 16:15] LABS: TROPONINI < 0.017 ng/mL (0.000-0.055)
[2017-08-08] MEDS: IV NORMAL SALINE 1000ML BAG 1,000 ML IV (16:40)
[2017-08-08 16:45] LABS: % BANDS 9 % (0-9); % BASOS 1 % (0-3); % LYMPHS 3 % (24-48); % MONOS 5 % (0-10); % SEGS 82 % (35-66); PLT ESTIMATE ADEQUATE (ADEQUATE)
[2017-08-08 18:13] LABS: INFLUENZA A PATIENT NEGATIVE (NEGATIVE); INFLUENZA B PATIENT NEGATIVE (NEGATIVE); OBC FLU VALID
[2017-08-08] MEDS: ACETAMINOPHEN 650 MG/20.3 ML SOLUTION. PEG (18:40)
[2017-08-08] MEDS: ACETAMINOPHEN 325 MG TABLET. PO (18:45)
[2017-08-08] MEDS ORDERED: ACETAMINOPHEN 650 MG/20.3 ML SOLUTION. (18:45)
== END 2017-08-08 19:37 | disposition home or self-care (01) ==
LOC: ER 15:11
DX: E86.0 Dehydration (principal); J18.1 Lobar pneumonia, unspecified organism; R41.82 Altered mental status, unspecified; G30.9 Alzheimer's disease, unspecified; F02.80 Dementia in other diseases classified elsewhere, unspecified severity, without behavioral disturbance, psychotic disturbance, mood disturbance, and anxiety; Z86.73 Personal history of transient ischemic attack (TIA), and cerebral infarction without residual deficits; Z95.0 Presence of cardiac pacemaker; Z88.0 Allergy status to penicillin; Z88.1 Allergy status to other antibiotic agents
CPT/HCPCS: 36415; 71045; 80053; 81001; 84484; 85007; 85025; 87086; 87804; 87804-59; 96360; 99285-25; J7030